=== PATIENT | female | born 2000 | race Caucasian/White ===

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

== ENCOUNTER 2020-12-19 07:53 | Emergency (ER) | payer OTHER, SELFPAY ==
[2020-12-19] VITALS (7 sets, daily range): BP systolic 112–138; BP diastolic 53–91; PULSE 78–105; RESP 14–18; TEMP 36.6; O2SAT 95–99
--- NOTE | 2020-12-19 07:55 | PC.NURSE ---
patient prsented per wc with sig other, states baby is comping, placed on cot and undressed and erp at the bedside
--- NOTE | 2020-12-19 08:01 | PC.NURSE ---
[facility] contacted no active blood noted, brown meconium stain noted during delivery
--- NOTE | 2020-12-19 08:10 | PC.NURSE ---
NS started at wide open rate started at this time
[2020-12-19] MEDS: SODIUM CHLORIDE 0.9% IV 1,000 ML 999 ML ×2 (08:15→09:16)
--- NOTE | 2020-12-19 08:19 | PC.NURSE ---
fluids infusing abominal massage to promote placental delivery,
--- NOTE | 2020-12-19 08:21 | PC.NURSE ---
placenta starting to deliver, continue to monitor at this time
--- NOTE | 2020-12-19 08:25 | PC.NURSE ---
Placenta delivered at this time
[2020-12-19] MEDS: OXYTOCIN 10 UNITS/ML VIAL 20 UNITS IV CONT (08:28)
--- NOTE | 2020-12-19 08:28 | PC.NURSE ---
Pitocin started at 200ml an hour
--- NOTE | 2020-12-19 08:30 | PC.NURSE ---
ERP on the phone with Dr SMITH
--- NOTE | 2020-12-19 08:30 | PC.NURSE ---
clean erlinda pad in place at this time, noted to have some bleeding, moderate amount, erlinda area cleaned
--- NOTE | 2020-12-19 08:33 | PC.NURSE ---
abdominal massage being performed fundus not quite firm at this time
--- NOTE | 2020-12-19 08:36 | PC.NURSE ---
Dr Garcia at the bedside for reassessment
--- NOTE | 2020-12-19 08:42 | PC.NURSE ---
doctor massaging fundus at this time, labs being drawn, second line to be started
--- NOTE | 2020-12-19 08:50 | PC.NURSE ---
infant skin to skin,with mom, dad at bedside, moderate vag bleding noted, erlinda pad applied, fundus firm at umbilicus
--- NOTE | 2020-12-19 08:51 | PC.NURSE ---
straight cath completed, approx 25ml obtained
--- NOTE | 2020-12-19 08:55 | PC.NURSE ---
pitocin increased to 300ml an hour
--- NOTE | 2020-12-19 08:57 | PC.NURSE ---
fundus more firm at this time, baby in room,
--- NOTE | 2020-12-19 09:00 | P.PCNOB_ITS ---
OB - Delivery Note Procedure Delivery date: 12/19/20 Procedure: This young woman came in stating she felt she was going to deliver. She started having contractions at about 2:30 am she says and felt she was going to deliver about 5:30 am. He water broke in the car on the way here. She was placed in room 6 as soon as she arrived, and the head was crowing when she was first observed. She reports no care, besides an initial appointment. It seems she did not care for her provider. She does not know when term delivery would be. She thinks her last menstrual cycle was in April. She presented here at 7:55 and was evaluated immediately. events: No Care Induction method: none Delivery monitor: external uterine Route of delivery: other (normal vaginal ) Episiotomy description: None Laceration Description: Perineal - 1st Degree Anesthesia type: None Complications: Transfer pending to [facility] Baby Date of : 12/19/20 Time of : 08:00 Weeks of gestation at delivery: 40 gender: Male (Weight 3.83 kilos) presentation: vertex position: Right Occiput Anterior Placenta delivery description: Spontaneous cord vessel description: 3 Vessels score one minute: 6 score five minutes: 8 score ten minutes: 9 Narrative: Delivery of placenta was at 8:25 am. Fundus was initially quite firm, but became baggy a few minutes later. Massage was done repeatedly and fundus has firmed up quickly. Discussed with Dr SMITH at [facility]. Plan transfe r as soon as possible.
[2020-12-19 09:10] LABS: Add Urine Microscopic? YES; Appearance Urine Clear (Clear); Bilirubin Urine Negative (Negative); Blood Urine 3+ (Negative); Color Urine Yellow (Yellow); Glucose Urine UA Negative (Negative); Ketones Urine Negative (Negative); Leukocyte Esterase Ur Negative (Negative); Nitrate Urine Negative (Negative); Protein Urine 1+ (Negative); Specific Grav Ur >= 1.030 (1.010-1.020); Urobilinogen Urine 0.2 mg/dL (0.2-1.0)
[2020-12-19 09:16] LABS: Amphetamine Screen Urine Positive (Negative); Barbiturate Screen Urine Negative (Negative); Benzodiazepines Screen Urine Negative (Negative); Cannabinoid Screen Urine Positive (Negative); Cocaine Screen Urine Negative (Negative); Methadone Screen Urine Negative (Negative); Opiate Screen Urine Negative (Negative); Phencyclidine Screen Urine Negative (Negative)
[2020-12-19 09:16] LABS: Bacteria Urine 2+ /hpf; RBC Urine 51-75 /hpf (0-2); Squamous Epithelial Cell Urine Moderate /hpf (Few)
[2020-12-19 09:17] LABS: Mucus Urine Heavy /lpf
--- NOTE | 2020-12-19 09:25 | PC.NURSE ---
pitocin decreased to 60ml an hour
--- NOTE | 2020-12-19 09:27 | PC.NURSE ---
erlinda pad changed, moderate amount of bleeding noted
[2020-12-19 09:43] LABS: HIV 1 P24 AG Negative (Negative); HIV 1/2 AB Negative (Negative)
--- NOTE | 2020-12-19 09:57 | ED.GENADULT ---
HPI - General Adult General Stated complaint: HAVING A BABY Time Seen by Provider: 12/19/20 07:55 Source: patient Mode of arrival: ambulatory Limitations: no limitations History of Present Illness HPI narrative: Patient states she had started having contractions this am at about 2:30 am. She knew she was in labor and was going to deliver at 5:30 am. Her water broke on the way here. She arrived and was put into room 6 for examination. She was and was delivered at 8:00am. See delivery note. Onset (ago): hour(s) Associated symptoms: denies other symptoms Related Data Home Medications Medication Instructions Recorded Confirmed No Home Medications 11/22/19 11/22/19 Allergies Allergy/AdvReac Type Severity Reaction Status Date / Time No Known Allergies Allergy Unverified 01/21/19 04:59 Review of Systems Review of Systems: All systems reviewed & are unremarkable except as noted in HPI and below Constitutional: Constitutional: Reports no additional constitutional complaints Eyes: Eyes: Reports no additional eye complaints ENT: Reports system reviewed and no additional complaints, except as documented Cardiovascular: Cardiovascular: Reports no additional cardiovascular complaints Respiratory: Respiratory: Reports no additional respiratory complaints Gastrointestinal: Gastrointestinal: Reports no additional gastrointestinal complaints Genitourinary: Genitourinary: Reports no additional female genitourinary complaints Musculoskeletal: Musculoskeletal: Reports no additional musculoskeletal complaints Integumentary/Breasts: Skin/Breast: Reports system reviewed and no additional complaints, except as docu Neurologic: Reports system reviewed and no additional complaints, except as documented Psychiatric: Psychiatric: Reports no additional psychiatric complaints Endocrine: Endocrine: Reports no additional endocrine complaints Hematologic/Lymphatic: Hematologic/Lymphatic: Reports no additional hematologic/lymphatic complaints [facility], [facility] Past Medical History Medical History Asthma exacerbation Nicotine dependence Surgical History Surgical History History of tonsillectomy Family History Family History (Updated 12/19/20 @ 10:02 by David Garcia MD) Other Family history non-contributory Social History Social History Years smoked: 5 Substance use: former Substance use type: methamphetamine Other substance usage details: off several weeks. Highly motivated, wants to be with her kids. Gender identity (if verbalized by the patient): Female Exam Narrative: Exam Narrative: She appears in moderate distress and it appears she will deliver momentarily. Const: General: alert Orientation/consciousness: patient oriented x3 HENMT: Head: normal to inspection Face and sinus: normal facial exam Eyes: Conjunctivae: conjunctivae normal EOM: EOMs intact bilaterally Neck: Neck: normal visual inspection Chest: Chest palpation & inspection: normal inspection of the chest Resp: Effort & Inspection: normal respiratory effort GI: GI Palp: Yes Soft to palpation (nontender) : Other: See delivery note. Her vaginal delivery was unremarkable at 8:00. She had a very small perineal tear, probably a stage 1 after delivery. Exterior genitals are unremarkable. She had minimal bleeding. Estimated blood loss was 500ml total. She initially had a firm fundus, but this became boggy pretty quickly. The fundus was massaged and it contracted well. Serial exams were performed and she was not felt to have significant bleeding. Back/Spine/Pelvis: Back: no CVA tenderness Skin: General skin exam: normal color Neuro: General: patient oriented x3 and moves all extremities Extrem: General: normal to inspection Psych: Appearance: grossly normal Mental S
--- NOTE | 2020-12-19 10:08 | PC.NURSE ---
fundus remain firm at the umbilicus. mod vaginal bleeding noted. depends applied. mother denies pain at this time. iv's infusing x2 well without signs of infiltration. transport team at the bedside.
== END 2020-12-19 10:50 | disposition short-term general hospital (02) ==
PROVIDERS: Emergency Provider Emergency Medicine
DX: O70.0 First degree perineal laceration during delivery (principal); Z3A.40 40 weeks gestation of pregnancy; Z37.0 Single live birth
CPT/HCPCS: 59409; 36415; 51701; 80307; 81001; 86703; 86850; 86900; 86901; 96374; 99285; 99291; J2590; J7030

== ENCOUNTER 2021-05-18 05:36 | Day surgery (SDC) | payer OTHER, SELFPAY ==
[2021-05-18] VITALS (24 sets, daily range): BP systolic 80–150; BP diastolic 44–70; PULSE 40–89; RESP 8–20; TEMP 35.9–36.7; O2SAT 98–100
[2021-05-18 06:16] LABS: Basophils Percent Auto 0.6 % (0.2-1.2); Eosinophils Absolute Auto 0.1 K/mm3 (0-0.3); Eosinophils Percent Auto 1.5 % (0-4.4); Hematocrit 29.3 % (37.0-47.0); Hemoglobin 9.5 g/dL (12.0-15.0); Immature Granulocyte Absolute 0.01 K/mm3 (0.00-0.031); Immature Granulocyte Percent A 0.2 % (0-0.5); Lymphocytes Absolute Auto 2.35 K/mm3 (0.9-3.2); Lymphocytes Percent Auto 35.7 % (18.3-44.2); Mean Corpuscular HGB Conc 32.4 g/dl (32-36); Mean Corpuscular Hemoglobin 25.5 pg (26-34); Mean Corpuscular Volume 78.6 fl (80-100); Mean Platelet Volume 10.7 fl (7.4-10.4); Monocytes Absolute Auto 0.5 K/mm3 (0.1-0.6); Monocytes Percent Auto 7.6 % (2.6-8.5); Neutrophils Absolute Auto 3.6 K/mm3 (1.3-6.7); Neutrophils Percent Auto 54.4 % (45.5-73.1); Platelet Count Result 295 k/mm3 (150-375); Red Blood Count 3.73 M/mm3 (4.2-5.4); Red Cell Distribution Width 20.4 % (11.5-14.5); White Blood Count 6.6 K/mm3 (4.5-10.0)
[2021-05-18] MEDS: SODIUM CHLORIDE 0.9% IV 1,000 ML 999 ML IV CONT ×2 (07:03→07:37)
--- NOTE | 2021-05-18 07:03 | PC.NURSE ---
ED MD did speculum exam with this RN as etcher aircraft. removed large amount of clots approx. size of golf ball.
[2021-05-18 07:07] LABS: Anion Gap 5 mmol/L (8-16); Blood Urea Nitrogen 15 mg/dL (7-17); Calcium 8.5 mg/dL (8.4-10.2); Carbon Dioxide 22 mmol/L (22-30); Chloride 110 mmol/L (98-107); Estimated CRCL calculation 128 ml/min; Estimated Glomerular Filt Rate > 60; Glucose 90 mg/dL (65-110); Potassium 4.5 mmol/L (3.4-5.0); Sodium 137 mmol/L (137-145)
[2021-05-18 07:42] LABS: Partial Thromboplastin Time 30.4 SECONDS (22.3-36.8); Prothrombin Time 13.2 Seconds (11.1-14.7); SPREG INTERNAL CONTROL Positive; Serum Qual hCG Positive
--- NOTE | 2021-05-18 07:48 | ED.GENADULT ---
HPI - General Adult General Source: RN notes reviewed History of Present Illness HPI narrative: Patient presents emergency department from home for vaginal bleeding. Patient states that she awoke and blood this morning she states that since that time she is been passing large amounts of bright red blood patient states that she has been having brown vaginal bleeding for the past 1 week patient states she does not know she is possibly she states that she did have a in December that required her to be transferred to [facility] from [facility] secondary to a retained placenta patient does note mild lower abdominal cramping denies any fevers or chills chest pain shortness of breath Related Data Allergies Allergy/AdvReac Type Severity Reaction Status Date / Time No Known Allergies Allergy Unverified 05/18/21 08:53 Review of Systems Review of Systems: Gen.: Denies fevers or chills ENT: Denies congestion Respiratory: Denies shortness of breath or cough CV: Denies chest pain or palpitations GI: Reports lower abdominal cramping. Denies nausea, emesis or diarrhea see HPI Musculoskeletal: Denies back pain or muscle pain Neuro: Denies numbness, tingling, weakness or focal weakness Skin: Denies rash Except as documented, all other systems reviewed and negative [facility] Past Medical History Medical History Asthma exacerbation Nicotine dependence Surgical History Surgical History History of tonsillectomy Family History Family History Other Family history non-contributory Social History Social History Years smoked: 5 Substance use: former Substance use type: methamphetamine Other substance usage details: off several weeks. Highly motivated, wants to be with her kids. Gender identity (if verbalized by the patient): Female Exam Narrative: APPEARANCE: No acute distress, nontoxic, resting in bed EYES: EOMI HEENT: Normocephalic, atraumatic, OMM RESPIRATORY: No respiratory distress Clear to auscultation bilaterally with no rhonchi wheezing or rales. CARDIOVASCULAR: Regular rate and rhythm without murmurs rubs or gallops. ABDOMINAL: Soft, nontender, nondistended, no rebound or guarding : Blood clots over external vagina, right red blood with clots in vaginal canal were all removed MUSCULOSKELETAl: Moves all extremities. No clubbing, cyanosis or edema. NEURO: Awake and alert. Following commands, speech normal, no focal deficits SKIN:: Warm, dry. No rashes lesions or abrasions PSYCHIATRIC: Normal affect/mood, Course Course Emergency Course: Discussed with Dr. Walker in the emergency department see the patient Dr. Walker evaluated the patient at this time will take the patient to the OR for D&C Discussed with patient plan for OR agreement at this time Vital Signs Vital signs: Vital Signs Temperature 98.0 F 05/18/21 05:42 Pulse Rate 69 05/18/21 05:42 Respiratory Rate 16 05/18/21 05:42 Blood Pressure 102/59 L 05/18/21 05:42 Pulse Oximetry 100 05/18/21 05:42 Temperature 98.1 F 05/18/21 12:25 Pulse Rate 52 L 05/18/21 14:15 Respiratory Rate 14 05/18/21 14:15 Blood Pressure 105/70 05/18/21 14:15 Pulse Oximetry 100 05/18/21 13:45 Medical Decision Making Vital Signs Vital Signs: Vital Signs Temperature 98.0 F 05/18/21 05:42 Pulse Rate 69 05/18/21 05:42 Respiratory Rate 16 05/18/21 05:42 Blood Pressure 102/59 L 05/18/21 05:42 Pulse Oximetry 100 05/18/21 05:42 Temperature 98.1 F 05/18/21 12:25 Pulse Rate 52 L 05/18/21 14:15 Respiratory Rate 14 05/18/21 14:15 Blood Pressure 105/70 05/18/21 14:15 Pulse Oximetry 100 05/18/21 13:45 Lab Data Result diagrams: 05/18/21 10:37 05/18
--- NOTE | 2021-05-18 07:52 | P.HP_ITS ---
H&P: HPI History of Present Illness Date/Time: 05/18/21 07:47 Lavern is a 21yo s/p in January 2021. She reports the delivery was complicated by retained placenta. She was given medications and they thought that she passed everything. She presents with heavy vaginal bleeding; found to be anemic, hypotensive, and bleeding. She had a positive beta HCG; unsure of LMP. Reports cramping Chief Complaint: vaginal bleeding Review of Systems Review of Systems: All systems reviewed & are unremarkable except as noted in HPI and below (HPI) [facility] Past Medical History Medical History Asthma exacerbation Nicotine dependence Surgical History Surgical History History of tonsillectomy Family History Family History Other Family history non-contributory Social History Social History Years smoked: 5 Substance use: former Substance use type: methamphetamine Other substance usage details: off several weeks. Highly motivated, wants to be with her kids. Gender identity (if verbalized by the patient): Female Meds Home Medications and Allergies Home Medications Medication Instructions Recorded Confirmed Type No Home Medications 11/22/19 11/22/19 History Allergies Allergy/AdvReac Type Severity Reaction Status Date / Time No Known Allergies Allergy Unverified 01/21/19 04:59 Vital Signs Vital Signs - 24 hr 05/18/21 05:42 05/18/21 07:02 05/18/21 07:03 Temperature 36.7 C Pulse Rate 69 63 71 Respiratory Rate 16 20 17 Blood Pressure 102/59 L 90/65 L Pulse Oximetry 100 100 100 05/18/21 07:04 05/18/21 07:15 05/18/21 07:16 Temperature Pulse Rate 63 53 L 60 Respiratory Rate 15 13 8 L Blood Pressure 90/65 L 85/59 L Pulse Oximetry 99 100 100 Exam Const: General: anxious Resp: Effort & Inspection: normal respiratory effort and able to speak in complete sentences Cardio: Rate: tachycardic : Other: cervix 2cm dilated w/ bleeding; large clot removed Neuro: General: patient oriented x3 Psych: Affect: Anxious affect present H&P: Results Labs Labs: Short CBC 05/18/21 Range/Units 06:06 WBC 6.6 (4.5-10.0) K/mm3 Hgb 9.5 L (12.0-15.0) g/dL Hct 29.3 L (37.0-47.0) % Plt Count 295 (150-375) k/mm3 BMP 05/18/21 06:06 Sodium 137 Potassium 4.5 Chloride 110 H Carbon Dioxide 22 BUN 15 Creatinine 0.50 L Glucose 90 Calcium 8.5 Assessment and Plan Assessment and plan (1) Incomplete miscarriage: Code(s): O03.4 - Incomplete spontaneous without complication Status: Acute Additional Plan - Proceed with suction D&C - Risks and benefits explained - T&S
--- NOTE | 2021-05-18 08:31 | PC.NURSE ---
Cursing at nurse. Refuses to remove her socks and bra. Refuses to let this nurse take her to the OR.
--- NOTE | 2021-05-18 08:57 | WPDANESEPPF ---
Anes - Initial Pre Proc Eval Procedure: Operation Date: 05/18/21 09:00 Proposed Procedures p Suction Dilatation And Curettage - Melvina Walker MD Date/Time: 05/18/21 08:57 Surgeon: Melvina Walker MD Pre Op Diagnosis: Vaginal bleeding Patient Data Age: 21 Gender: F Height: 1.63 m Weight: 69.54 kg Last Vital Signs Temp 36.7 C 05/18/21 05:42 Pulse 70 05/18/21 08:26 Resp 18 05/18/21 08:26 BP 100/62 05/18/21 08:26 Pulse Ox 98 05/18/21 08:26 Allergies Allergy/AdvReac Type Severity Reaction Status Date / Time No Known Allergies Allergy Unverified 05/18/21 08:53 Home Medications Medication Instructions Recorded Confirmed Type No Home Medications 11/22/19 11/22/19 History Laboratory Tests 05/18/21 05/18/21 05/18/21 06:06 06:06 06:54 WBC 6.6 K/mm3 K/mm3 (4.5-10.0) RBC 3.73 M/mm3 L M/mm3 (4.2-5.4) Hgb 9.5 g/dL L g/dL (12.0-15.0) Hct 29.3 % L % (37.0-47.0) MCV 78.6 fl L fl (80-100) MCH 25.5 pg L pg (26-34) MCHC 32.4 g/dl g/dl (32-36) RDW 20.4 % H % (11.5-14.5) Plt Count 295 k/mm3 k/mm3 (150-375) MPV 10.7 fl H fl (7.4-10.4) Immature Gran % (Auto) 0.2 % % (0-0.5) Neut % (Auto) 54.4 % % (45.5-73.1) Lymph % (Auto) 35.7 % % (18.3-44.2) [place] % (Auto) 7.6 % % (2.6-8.5) Eos % (Auto) 1.5 % % (0-4.4) Baso % (Auto) 0.6 % % (0.2-1.2) Lymph # (Auto) 2.35 K/mm3 K/mm3 (0.9-3.2) [place] # (Auto) 0.5 K/mm3 K/mm3 (0.1-0.6) Eos # (Auto) 0.1 K/mm3 K/mm3 (0-0.3) Baso # (Auto) 0.0 K/mm3 K/mm3 (0.0-0.1) Abs Immat Gran (auto) 0.01 K/mm3 K/mm3 (0.00-0.031) Absolute Neuts (auto) 3.6 K/mm3 K/mm3 (1.3-6.7) Absolute Nucleated RBC 0.0 K/mm3 K/mm3 (0.0-0.012) Nucleated RBC % 0.0 % % (0.0-0.2) PT 13.2 Seconds Seconds (11.1-14.7) INR 1.0 APTT 30.4 SECONDS SECONDS (22.3-36.8) Sodium 137 mmol/L mmol/L (137-145) Potassium 4.5 mmol/L mmol/L (3.4-5.0) Chloride 110 mmol/L H mmol/L (98-107) Carbon Dioxide 22 mmol/L mmol/L (22-30) Anion Gap 5 mmol/L L mmol/L (8-16) BUN 15 mg/dL mg/dL (7-17) Creatinine 0.50 mg/dL L mg/dL (0.7-1.0) Estim Creat Clear Calc 128 ml/min ml/min Estimated GFR > 60 (59 - ) Glucose 90 mg/dL mg/dL (65-110) Calcium 8.5 mg/dL mg/dL (8.4-10.2) Serum HCG, Qual 05/18/21 06:54 WBC RBC Hgb Hct MCV MCH MCHC RDW Plt Count MPV Immature Gran % (Auto) Neut % (Auto) Lymph % (Auto) [place] % (Auto) Eos % (Auto) Baso % (Auto) Lymph # (Auto) [place] # (Auto) Eos # (Auto) Baso # (Auto) Abs Immat Gran (auto) Absolute Neuts (auto) Absolute Nucleated RBC Nucleated RBC % PT INR APTT Sodium Potassium Chloride Carbon Dioxide Anion Gap BUN Creatinine Estim Creat Clear Calc Estimated GFR Glucose Calcium Serum HCG, Qual Positive A Patient hx anesthesia problems: none Family hx anesthesia problems: none PENDING SALE TO [facility] Past Medical History Medical History Asthma exacerbation Nicotine dependence Surgical History Surgical History History of tonsillectomy Family History Family History Other Family history non-contributory Social History Social History Years smoked: 5 Substance use:
[2021-05-18] MEDS: hetaSTARCH 6%/NACL 500 ML IV CONT (09:01)
--- NOTE | 2021-05-18 09:26 | WPDHPUPDATE1 ---
History and Physical Update Update Date/Time: 05/18/21 09:26 History and Physical has been reviewed, including an updated exam of the patient. There are NO changes in the patient's condition. Risks, benefits, and alternatives have been discussed and questions answered. Patient agrees to proceed with procedure.
[2021-05-18] MEDS: LACTATED RINGERS 1,000 ML 30 ML IV CONT ×2 (10:11→11:06)
--- NOTE | 2021-05-18 10:41 | P.OP_ITS ---
Procedure Note - Detailed Date of Procedure 05/18/21 Pre-op Diagnosis - Vaginal bleeding - Incomplete AB Post-op Diagnosis same Procedure Performed Suction dilation and curettage Surgeon Melvina Walker MD Anesthesia MAC Indications 21yo , unknown LMP w/ active vaginal bleeding, dilated cervix. +pregnan cy test today, hypotensive and tachycardic; H/H down 2 points from January 2021 Findings Uterus normal size; cervix 2cm dilated w/ POC protruding through external os; large clots removed ~50cc in total Description of Procedure Lavern was taken operating room where she was placed under mac sedation. She was then prepped and draped in the normal sterile fashion in the dorsal lithotomy position. A time-out was performed. A bivalve speculum was then placed within the vagina where a significant amount of large clots were removed. On removal of the clots the cervix was found to be dilated with products of conception at the external os. Using ring forceps the products of conception were removed and sent to pathology. A tenaculum was then placed on the anterior lip of the cervix. Using a curved 8 Lao suction cannula, the uterus was evacuated and minimal bleeding was noted. Approximately 3 passes were made. Using a sharp curettage gently, good uterine cry was noted. Using a bedside ultrasound the lining was verified thin. Good hemostasis was noted. CBC and coags were collected while patient was still asleep. Sponge, lap, instrument counts were correct at the end the procedure. Patient was awoken without issues and taken to recovery with plans of same day discharge home if labs are stable. Estimated Blood Loss 150 Drains No Packing No Pathology yes Complications No immediate complications Condition stable Disposition same day
[2021-05-18 10:49] LABS: Hematocrit 21.2 % (37.0-47.0); Mean Corpuscular HGB Conc 31.1 g/dl (32-36); Mean Corpuscular Hemoglobin 25.2 pg (26-34); Mean Corpuscular Volume 80.9 fl (80-100); Mean Platelet Volume 10.3 fl (7.4-10.4); Platelet Count Result 197 k/mm3 (150-375); Red Blood Count 2.62 M/mm3 (4.2-5.4); Red Cell Distribution Width 20.5 % (11.5-14.5); White Blood Count 4.7 K/mm3 (4.5-10.0)
[2021-05-18 10:53] LABS: Hemoglobin 6.6 g/dL (12.0-15.0)
[2021-05-18 11:31] LABS: INR 1.3; Prothrombin Time 15.6 Seconds (11.1-14.7)
[2021-05-18] MEDS: SODIUM CHLORIDE 0.9% IV 250 ML 30 ML IV CONT (11:35)
--- NOTE | 2021-05-18 14:19 | SUR.PHASEII ---
[address] HDZ PER PHONE- UPDATED ON PTS STATUS. DR HDZ AWARE PT REFUSING LAB DRAW FOR A REPEAT H&H AFTER 1 UNIT PRBC. STATES IF PT CAN WALK TO THE RESTROOM AND URINATE AND NOT FEEL LIGHT-HEADED SHE CAN BE DISCHARGED HOME.
--- NOTE | 2021-05-18 15:27 | SUR.PHASEII ---
1520 THEODORE CASTELLANOS RN SPOKE WITH DR HDZ IN REGARDS TO PT NOT HAVING A RIDE HOME- DR ANDREINA PUENTES WITH PT BEING DISCHARGED PER [facility] WITHOUT A RESPONSIBLE ADULT PRESENT.
--- NOTE | 2021-05-18 15:34 | PCCCNOTE ---
Received call from PACU requesting cab voucher for Lavern to go home. She reports she has no ride home and will walk. Gloria spoke with who states pt can go home by cab. One way, no stop cab voucher given to DIRECTOR CARDIOLOGY.
== END 2021-05-18 15:55 | disposition home or self-care (01) ==
LOC: ANHED 07:53 → ANHSURGERY 08:07
PROVIDERS: Emergency Medicine; Emergency Provider Emergency Medicine; Visit Provider Obstetrics & Gynecology
DX: O03.4 Incomplete spontaneous abortion without complication (principal); J45.901 Unspecified asthma with (acute) exacerbation
CPT/HCPCS: 59812; 36415; 36430; 80048; 84703; 85025; 85027; 85610; 85730; 86850; 86900; 86901; 86920; 88305; A9270; J2250; J2704; J3010; J7030; J7050; J7060; J7120; P9016

== ENCOUNTER 2022-03-16 14:41 | Outpatient (CLI) | payer OTHER, SELFPAY ==
--- NOTE | ~2022-03-16 | US_ITS ---
US OB <=14 wk fetus w TV DATE: 03/16/2022 15:55 INDICATION: Abdominal pain, amenorrhea. Positive test. TECHNIQUE: Real-time imaging via transabdominal and transvaginal approaches, color flow imaging COMPARISON: None FINDINGS: The uterus measures approximately 9.7 cm height, 6.1 cm anteroposterior dimension. An intra uterine gestational sac is identified. pole and yolk sac are detected. The gestational sac is n ormally shaped with normal surrounding hyperechogenicity consistent with normal decidual reaction. Fe steven heart rate of 139 bpm. Gestational sac size is consistent with 6 weeks estimated gestational age. Ridgeway-rump length averaging 0.78 cm is consistent with 6 weeks 5 days estimated gestational age +/- 4 days, with ANGI of November 04, 2022. The ovaries appear normal, with vascular flow. No pelvic mass lesion is noted. Probable physiologic small amount of free fluid in the posterior cul- de-sac. IMPRESSION: Early intrauterine gestation, estimated gestational age of 6 weeks 5 days +/- 4 days, wit h ANGI of November 04, 2022 Reviewed, dictated and finalized at [facility]. Reviewed, dictated and finalized at location [facility]. IMPRESSION: Early intrauterine gestation, estimated gestational age of 6 weeks 5 days +/- 4 days, with ANGI of November 04, 2022
[2022-03-16 14:56] LABS: Basophils Absolute Auto 0.04 K/mm3 (0.00-0.10); Basophils Percent Auto 0.6 % (0.0-1.0); Eosinophils Absolute Auto 0.13 K/mm3 (0.02-0.50); Eosinophils Percent Auto 1.8 % (1.0-6.0); Hematocrit 38.8 % (35.0-49.0); Hemoglobin 12.7 g/dL (12.0-15.0); Immature Granulocyte Absolute 0.01 K/mm3 (0.00-0.00); Immature Granulocyte Percent A 0.1 % (0.0-0.0); Lymphocytes Absolute Auto 2.66 K/mm3 (1.10-4.50); Lymphocytes Percent Auto 37.6 % (18.0-42.0); Mean Corpuscular HGB Conc 32.7 g/dL (32.0-36.0); Mean Corpuscular Hemoglobin 29.6 pg (27.0-31.0); Mean Corpuscular Volume 90.4 fL (78.0-102.0); Mean Platelet Volume 10.1 fl (9.2-11.8); Monocytes Absolute Auto 0.53 K/mm3 (0.10-0.90); Monocytes Percent Auto 7.5 % (2.0-11.0); Neutrophils Absolute Auto 3.7 K/mm3 (1.7-7.2); Neutrophils Percent Auto 52.4 % (50.0-70.0); Platelet Count Result 311 K/mm3 (150-420); Red Blood Count 4.29 M/mm3 (4.20-5.40); Red Cell Distribution Width 13.7 % (11.6-14.4); White Blood Count 7.1 K/mm3 (4.8-10.8)
[2022-03-16 15:03] LABS: SPREG INTERNAL CONTROL Positive; Serum Qual hCG Positive
[2022-03-16 15:25] LABS: Alanine Aminotransferase 16 U/L (14-59); Albumin Level 3.8 g/dL (3.4-5.0); Alkaline Phosphatase 66 U/L (46-116); Anion Gap 6 mmol/L (8-16); Aspartate Amino Transferase < 10 U/L (15-37); Bilirubin,Total 0.3 mg/dL (0.00-1.00); Blood Urea Nitrogen 13 mg/dL (7-18); Carbon Dioxide 29 mmol/L (21-32); Chloride 103 mmol/L (98-108); Estimated Glomerular Filt Rate > 60; Free T4 Free Thyroxine 0.93 ng/dL (0.76-1.46); Glucose 92 mg/dL (70-99); Osmolality Calculated 286 mOsm/kg (285-295); Sodium 138 mmol/L (136-145); Thyroid Stimulating Hormone 0.55 uIU/mL (0.36-3.74); Total Protein 7.1 g/dL (6.4-8.2)
== END 2022-03-16 14:42 | disposition home or self-care (01) ==
LOC: CHSLAB 14:43
PROVIDERS: PCP Family Medicine; Visit Provider Nurse Practitioner Family
DX: N91.2 Amenorrhea, unspecified (principal); Z32.01 Encounter for pregnancy test, result positive; R10.9 Unspecified abdominal pain
CPT/HCPCS: 36415; 76801; 76817; 80053; 84439; 84443; 84703; 85025

== ENCOUNTER 2023-04-22 21:59 | Emergency (ER) | payer OTHER, SELFPAY ==
[2023-04-22 21:59] VITALS: BP 117/72; PULSE 98; RESP 16; TEMP 36.8; O2SAT 97
[2023-04-22 22:01] VITALS: BP 117/72; PULSE 97; RESP 20; TEMP 37; O2SAT 98
--- NOTE | 2023-04-22 22:05 | ED.SKABFB ---
HPI - Skin/Abscess/Foreign Bdy General Chief complaint: Skin/Abscess/Foreign Body Stated complaint: R arm boil Time Seen by Provider: 04/22/23 22:05 Source: patient Mode of arrival: ambulatory Limitations: no limitations History of Present Illness HPI narrative: patient is a 23-year-old female with right armpit pain and swelling. She is developed a right armpit boil at this time. Patient has tried multiple outpatient home remedies without success. Patient declines to allow any surgical procedure to this area tonight but may allow in the near future. complaint: abscess/boil Onset (ago): week(s) (1) Tetanus up to date: yes Location: RUE Severity: moderate Severity scale (1-10): 5 Quality: sharp and constant Pain Consistency: constant Relieving factors: none Exacerbating factors: none Context: none Associated symptoms: denies other symptoms Treatments prior to arrival: OTC topical medication Related Data Allergies Allergy/AdvReac Type Severity Reaction Status Date / Time No Known Allergies Allergy Unverified 05/18/21 08:53 Review of Systems Review of Systems: All systems reviewed & are unremarkable except as noted in HPI and below Constitutional: Constitutional: Reports no additional constitutional complaints Eyes: Eyes: Reports no additional eye complaints ENT: Reports system reviewed and no additional complaints, except as documented Cardiovascular: Cardiovascular: Reports no additional cardiovascular complaints Respiratory: Respiratory: Reports no additional respiratory complaints Gastrointestinal: Gastrointestinal: Reports no additional gastrointestinal complaints Genitourinary: Genitourinary: Reports no additional female genitourinary complaints Musculoskeletal: Musculoskeletal: Reports no additional musculoskeletal complaints Integumentary/Breasts: Skin/Breast: Reports system reviewed and no additional complaints, except as docu Neurologic: Reports system reviewed and no additional complaints, except as documented Psychiatric: Psychiatric: Reports no additional psychiatric complaints Endocrine: Endocrine: Reports no additional endocrine complaints Hematologic/Lymphatic: Hematologic/Lymphatic: Reports no additional hematologic/lymphatic complaints Allergic/Immunologic: Allergic/Immunologic: Reports no additional allergic/immunologic complaints [facility] Past Medical History Medical History Asthma exacerbation Nicotine dependence Surgical History Surgical History History of tonsillectomy Family History Family History Other Family history non-contributory Social History Social History Years smoked: 5 Substance use: former Substance use type: methamphetamine Other substance usage details: off several weeks. Highly motivated, wants to be with her kids. Gender identity (if verbalized by the patient): Female Exam Const: General: healthy appearing Nutritional Appearance: well nourished Orientation/consciousness: patient oriented x3 HENMT: Head: normal to inspection Ears: external ears normal Eyes: Conjunctivae: conjunctivae normal Pupils: Equal, round and reactive pupils present Neck: Neck: normal visual inspection Chest: Chest palpation & inspection: normal inspection of the chest Resp: Effort & Inspection: normal respiratory effort Auscultation: clear to auscultation bilaterally Cardio: Rate: regular rate Rhythm: regular rhythm Heart sounds: no murmurs GI: Inspection: non-distended GI Palp: Yes Soft to palpation and No Tenderness to palpation present (GI) Auscultation: normal bowel sounds : General: Yes bladder normal to palpation Back/Spine/Pelvis: Back: no CVA tenderness Skin: General skin exam: normal color Rashes: no rashes Wounds: no
[2023-04-22] MEDS: HYDROcodone/acetaminophen (*CRX) 5-325 MG TABLET 1 TAB PO (22:27)
[2023-04-22] MEDS: CLINDAMYCIN HCL 150 MG CAP 300 MG PO (22:27)
== END 2023-04-22 22:35 | disposition home or self-care (01) ==
PROVIDERS: Emergency Provider Emergency Medicine; PCP Family Medicine
DX: L02.423 Furuncle of right upper limb (principal); Z87.891 Personal history of nicotine dependence
CPT/HCPCS: 99283; A9270

== ENCOUNTER 2023-09-29 11:35 | Emergency (ER) | payer OTHER, SELFPAY ==
[2023-09-29 11:35] VITALS: BP 127/85; PULSE 106; RESP 12; TEMP 36.8; O2SAT 99
--- NOTE | 2023-09-29 11:44 | ED.DENTAL ---
HPI - Dental/Oral General Chief complaint: Dental/Oral Stated complaint: left lower molar tooth ache Time Seen by Provider: 09/29/23 11:41 Source: patient Mode of arrival: ambulatory Limitations: no limitations History of Present Illness HPI Narrative: this is a 23-year-old female with a history of dental problems including tooth decay and has an area the left lower molar cracked tooth or surrounding gum inflammation with no fever chills no shortness of breath. The patient is establishing with a dentist. Complaint: tooth pain Onset (ago): week(s) Duration: constant Severity: moderate Severity scale (1-10): 6 Related Data Allergies Allergy/AdvReac Type Severity Reaction Status Date / Time No Known Allergies Allergy Unverified 05/18/21 08:53 Review of Systems Review of Systems: All systems reviewed & are unremarkable except as noted in HPI and below PMFSH Past Medical History Medical History Asthma exacerbation Nicotine dependence Surgical History Surgical History History of tonsillectomy Family History Family History Other Family history non-contributory Social History Social History Years smoked: 5 Substance use: former Substance use type: methamphetamine Other substance usage details: off several weeks. Highly motivated, wants to be with her kids. Gender identity (if verbalized by the patient): Female Exam Const: General: healthy appearing Nutritional Appearance: well nourished Orientation/consciousness: patient oriented x3 Neck: Neck: normal visual inspection and no lymphadenopathy Chest: Chest palpation & inspection: normal inspection of the chest Resp: Effort & Inspection: normal respiratory effort Auscultation: clear to auscultation bilaterally Cardio: Rate: regular rate Rhythm: regular rhythm Skin: Rashes: no rashes Course Course Emergency Course: Will be sending antibiotics and naproxen to her local pharmacy and advised patient follow-up with dentist. Vital Signs Vital signs: Vital Signs Temperature 36.8 C 09/29/23 11:35 Pulse Rate 106 H 09/29/23 11:35 Respiratory Rate 12 09/29/23 11:35 Blood Pressure 127/85 09/29/23 11:35 Pulse Oximetry 99 09/29/23 11:35 Oxygen Delivery Room Air 09/29/23 11:35 Temperature 36.8 C 09/29/23 11:35 Pulse Rate 106 H 09/29/23 11:35 Respiratory Rate 12 09/29/23 11:35 Blood Pressure 127/85 09/29/23 11:35 Pulse Oximetry 99 09/29/23 11:35 Oxygen Delivery Room Air 09/29/23 11:35 Critical Care Time Critical Care Time Critical Care Time: No Discharge Plan Discharge Clinical Impression: Dental abscess, Broken or cracked tooth, nontraumatic Patient Disposition: Home, Self-Care Condition: Stable Instructions: Antibiotic Form, Dental Abscess (ED) Additional Instructions: take medicine as prescribed and follow-up with dentist as soon as possible for further evaluation and treatment. Prescriptions: New amoxicillin 500 mg capsule 500 mg PO TID Qty: 30 0RF naproxen 500 mg tablet 500 mg PO BID PRN (Reason: pain) Qty: 20 0RF No Action clindamycin HCl 300 mg capsule 300 mg PO Q8H 7 Days Qty: 21 0RF Follow-up/Referrals: Robert Muller MD [Primary Care Provider] - Stand Alone Forms: Work/School Release IP Time of Disposition: 11:48
== END 2023-09-29 11:59 | disposition home or self-care (01) ==
LOC: CHSED 11:54
PROVIDERS: Emergency Provider Emergency Medicine; PCP Family Medicine
DX: K04.7 Periapical abscess without sinus (principal); K03.81 Cracked tooth
CPT/HCPCS: 99283

== ENCOUNTER 2024-01-01 07:07 | Emergency (ER) | payer OTHER, SELFPAY ==
--- NOTE | ~2024-01-01 | XR_ITS ---
EXAMINATION: XR chest 2V DATE: 01/01/2024 07:42 INDICATION: 5 days of chest pain and cough TECHNIQUE: Frontal and lateral views of the chest were obtained. COMPARISON: None FINDINGS: The lungs are clear with no focal airspace opacities, pulmonary edema, pleural effusion or pneumothor ax. The cardiomediastinal silhouette is normal. Mild thoracic spondylosis with chronic appearing mild anterior wedging of a midthoracic vertebral body, likely T6. IMPRESSION: 1. No acute cardiopulmonary disease. Reviewed, dictated and finalized at location [facility].
[2024-01-01 07:13] VITALS: BP 107/90; PULSE 110; RESP 18; TEMP 37.1; O2SAT 99
[2024-01-01 07:16] VITALS: O2SAT 100
--- NOTE | 2024-01-01 07:39 | ED.URI ---
HPI - URI/Sore Throat General Chief Complaint: Upper Respiratory Infection Stated Complaint: Congestion Time Seen by Provider: 01/01/24 07:19 Source: patient Mode of arrival: ambulatory Limitations: no limitations History of Present Illness HPI Narrative: 23 years old white female came to the emergency room with productive cough, nasal congestion, body aches, chills started high days. Patient denies sick contact. Related Data Home Medications Medication Instructions Recorded Confirmed buspirone 7.5 mg tablet 7.5 mg PO BID 01/01/24 01/01/24 prazosin 2 mg capsule 2 mg PO QID 01/01/24 01/01/24 Allergies Allergy/AdvReac Type Severity Reaction Status Date / Time No Known Allergies Allergy Unverified 01/01/24 07:11 Review of Systems Review of Systems: All systems reviewed & are unremarkable except as noted in HPI and below PMFSH Past Medical History Medical History Asthma exacerbation Incomplete miscarriage Nicotine dependence Surgical History Surgical History History of dilation and curettage 04/2021 History of tonsillectomy Family History Family History Other Family history non-contributory Social History Social History Years smoked: 5 Substance use: former Substance use type: methamphetamine Other substance usage details: off several weeks. Highly motivated, wants to be with her kids. Gender identity (if verbalized by the patient): Female Exam Narrative: General appearance: Well-developed, well-nourished Skin: Normal color Head: Normocephalic, nontraumatic Eyes: Clear conjunctiva ENT: Oropharynx normal, ears normal, nose normal Neck: Supple, nontender Chest and respiratory: Airway patent, no respiratory distress, no accessory muscle use Heart: Regular rate/rhythm Abdomen: Soft, nontender, no organomegaly, quiet bowel sounds Vascular: Normal peripheral pulses, normal capillary refill. Musculoskeletal: Normal range of motion, nontender back Neurologic: Alert and oriented ?3, [employer] is normal as tested, no gross motor deficit Course Vital Signs Vital signs: Vital Signs Temperature 37.1 C 01/01/24 07:13 Pulse Rate 110 H 01/01/24 07:13 Respiratory Rate 18 01/01/24 07:13 Blood Pressure 107/90 01/01/24 07:13 Pulse Oximetry 99 01/01/24 07:13 Oxygen Delivery Room Air 01/01/24 07:13 Temperature 37.1 C 01/01/24 07:13 Pulse Rate 110 H 01/01/24 07:13 Respiratory Rate 18 01/01/24 07:13 Blood Pressure 107/90 01/01/24 07:13 Pulse Oximetry 100 01/01/24 07:16 Oxygen Delivery Room Air 01/01/24 07:16 MDM - URI/Sore Throat MDM Narrative Medical decision making narrative: upper respiratory viral infection, bronchitis, strep throat, pneumonia are my concern Patient tested positive for strep, negative for RSV, COVID and flu, patient could have other upper respiratory viral infection. Diagnosis upper respiratory viral infection and strep throat. Discharged on amoxicillin and Tessalon Differential Diagnosis Differential diagnosis: Likely upper respiratory infection, viral infection, bronchitis, influenza and pharyngitis Lab Data Labs: Lab Results 01/01/24 Range/Units 07:12 Influenza A (RT-PCR) Negative (Negative) Influenza B (RT-PCR) Negative (Negative) RSV (RT-PCR) Negative (Negative) SARS-CoV-2 RNA (RT-PCR) Negative (Negative) Group A Strep (PCR) Detected A (Negative) Imaging Data Radiologist's impression: Impressions
[2024-01-01 07:52] LABS: Strep Group A RT-PCR DETECTED (Negative)
[2024-01-01 07:59] LABS: SARS-CoV-2 RNA PCR Negative (Negative)
[2024-01-01 08:00] LABS: Influenza A QL RT-PCR Negative (Negative); Influenza B QL RT-PCR Negative (Negative); RSV RNA, RT-PCR Negative (Negative)
[2024-01-01 08:31] VITALS: BP 101/65; PULSE 82; RESP 17; TEMP 36.9; O2SAT 99
== END 2024-01-01 08:31 | disposition home or self-care (01) ==
PROVIDERS: Emergency Provider Emergency Medicine; PCP Family Medicine
DX: J02.0 Streptococcal pharyngitis (principal); J45.909 Unspecified asthma, uncomplicated; Z20.822 Contact with and (suspected) exposure to COVID-19
CPT/HCPCS: 71046; 87637; 87651; 99283

== ENCOUNTER 2024-05-05 11:48 | Emergency (ER) | payer OTHER, SELFPAY ==
[2024-05-05 11:50] VITALS: BP 110/76; PULSE 88; RESP 18; TEMP 36.3; O2SAT 100
--- NOTE | 2024-05-05 12:22 | ED.DENTAL ---
HPI - Dental/Oral General Chief complaint: Dental/Oral Stated complaint: tooth pain Time Seen by Provider: 05/05/24 11:56 History of Present Illness HPI Narrative: patient presents with acute on chronic dental pain. She reports that she has had a broken tooth that is been intermittently infected in the upper right quadrant of her mouth. She is also reporting ear drainage on that same side. She has been taking 800 mg of ibuprofen every 4 hours for pain with some minimal relief. Patient reports that she is waking up at night screaming in pain. She is trying to get established with a local dental clinic or dental school so that she can have the tooth pulled. Remainder of ROS was negative for fever, chills, nausea, vomiting, headache, vision changes, chest pain, sob, abdominal pain, or changes in diet, bladder, or bowel habits. Related Data Home Medications Medication Instructions Recorded Confirmed No Home Medications 05/05/24 05/05/24 Allergies Allergy/AdvReac Type Severity Reaction Status Date / Time No Known Allergies Allergy Unverified 01/01/24 07:11 [facility] Past Medical History Medical History Asthma exacerbation Incomplete miscarriage Nicotine dependence Surgical History Surgical History History of dilation and curettage 04/2021 History of tonsillectomy Family History Family History Other Family history non-contributory Social History Social History Years smoked: 5 Substance use: former Substance use type: methamphetamine Other substance usage details: off several weeks. Highly motivated, wants to be with her kids. Gender identity (if verbalized by the patient): Female Exam Narrative: GEN: Awake, alert, and appropriate to situation. Well appearing, well nourished, nontoxic, appears mildly uncomfortable. HEENT: No rhinorrhea noted, mucous membranes moist. No scleral icterus or conjunctival injection. CV: Normal rate, regular rhythm, S1S2 no M/G/R. 2+ distal pulses all extremities. No peripheral edema noted. PULM: Non-labored respiration. Clear to auscultation bilaterally. No wheezes, rales, rhonchi. GI: Abdomen soft, non -tender to palpation. No rigidity, distention or guarding.? NEURO: Normal speech. No lateralizing or focal deficits noted. HEAD: Normocephalic, atraumatic, no visible or palpable masses, depressions, or scaring. EYES: Visual acuity intact, conjunctiva clear, sclera non-icteric, pink conjunctiva. EOM intact, PERRL. EARS: External auditory canals clear and without induration or erythema. Tympanic membranes translucent, mobile, and without bulging or erythema. Ossicles normal in appearance, hearing intact. No drainage from either ear. NOSE: No external lesions, mucosa non-inflamed, septum midline, no sinus tenderness or nasal drainage. Turbinates without bogginess or erythema MOUTH: Oral mucosa pink. Good salivary pool.? Poor Dentition however no appreciable erythema or abscess of the gums, bleeding or swelling, no gingivitis. Breath did not smell malodorous or of alcohol PHARYNX: Mucosa non-inflamed, no tonsillar hypertrophy or exudate, thrush or cobble stoning NODES: No anterior or posterior cervical or supraclavicular lymphadenopathy NECK: Supple, without lesions, bruits, or adenopathy, thyroid non-enlarged and non-tender Course Vital Signs Vital signs: Vital Signs Temperature 36.3 C L 05/05/24 11:50 Pulse Rate 88 05/05/24 11:50 Respiratory Rate 18 05/05/24 11:50 Blood Pressure 110/76 05/05/24 11:50 Pulse Oximetry 100 05/05/24 11:50 Oxygen Delivery Room Air 05/05/24 11:50 Temperature 36.3 C L 05/05/24 11:50 Pulse Rate 88 05/05/24 11:50 Respiratory Rate 18 05/05/24 11:50 Blood Pressure 110/76 05/05/24 11:50 Pulse Oximetry 100
[2024-05-05 12:29] LABS: Pregnancy On Board Control Positive; Urine Pregnancy Test Negative
== END 2024-05-05 12:33 | disposition home or self-care (01) ==
PROVIDERS: Emergency Provider Family Medicine; PCP Family Medicine
DX: K02.9 Dental caries, unspecified (principal)
CPT/HCPCS: 81025; 99283

== ENCOUNTER 2024-05-09 10:08 | Outpatient (CLI) | payer OTHER, SELFPAY ==
[2024-05-09 10:25] LABS: Basophils Percent Auto 0.5 % (0.0-1.0); Eosinophils Percent Auto 1.7 % (1.0-6.0); Hematocrit 39.1 % (35.0-49.0); Hemoglobin 13.1 g/dL (12.0-15.0); Immature Granulocyte Absolute 0.02 K/mm3 (0.00-0.00); Immature Granulocyte Percent A 0.3 % (0.0-0.0); Lymphocytes Percent Auto 28.1 % (18.0-42.0); Mean Corpuscular HGB Conc 33.5 g/dL (32-36); Mean Corpuscular Hemoglobin 31.3 pg (27.0-31.0); Mean Corpuscular Volume 93.5 fL (78.0-102.0); Mean Platelet Volume 10.1 fl (9.2-11.8); Monocytes Percent Auto 7.7 % (2.0-11.0); Neutrophils Percent Auto 61.7 % (50.0-70.0); Platelet Count Result 274 K/mm3 (150-420); Red Blood Count 4.18 M/mm3 (4.20-5.40); Red Cell Distribution Width 12.6 % (11.6-14.4); White Blood Count 7.4 K/mm3 (4.8-10.8)
[2024-05-09 10:26] LABS: Basophils Absolute Auto 0.04 K/mm3 (0.00-0.10); Eosinophils Absolute Auto 0.13 K/mm3 (0.02-0.50); Lymphocytes Absolute Auto 2.09 K/mm3 (1.10-4.50); Monocytes Absolute Auto 0.57 K/mm3 (0.10-0.90); Neutrophils Absolute Auto 4.58 K/mm3 (1.70-7.20)
[2024-05-09 10:29] LABS: Add Urine Microscopic? NO; Appearance Urine Clear (Clear); Bilirubin Urine Negative (Negative); Blood Urine Negative (Negative); Color Urine Light Yellow (Yellow); Glucose Urine UA Negative (Negative); Ketones Urine Negative (Negative); Leukocyte Esterase Ur Negative LEU/UL (Negative); Nitrate Urine Negative (Negative); Protein Urine Negative (Negative); Urobilinogen Urine 0.2 mg/dL (0.2-1.0); pH Urine 7.5 (5.0-8.0)
[2024-05-09 10:40] LABS: INR 0.9; Partial Thromboplastin Time 26.9 Sec (23.9-30.70); Prothrombin Time 10.3 Seconds (9.50-12.1)
[2024-05-09 11:18] LABS: Alanine Aminotransferase 22 U/L (14-59); Albumin Level 3.9 g/dL (3.4-5.0); Alkaline Phosphatase 69 U/L (46-116); Anion Gap 8 mmol/L (4-12); Aspartate Amino Transferase 16 U/L (15-37); Bilirubin,Total 0.1 mg/dL (0.00-1.00); Blood Urea Nitrogen 16 mg/dL (7-18); Calcium 9.1 mg/dL (8.5-10.1); Carbon Dioxide 30 mmol/L (21-32); Chloride 102 mmol/L (98-108); Estimated Glomerular Filt Rate > 60; Glucose 52 mg/dL (70-99); Osmolality Calculated 288 mOsm/kg (285-295); Potassium 4.2 mmol/L (3.5-5.1); Sodium 140 mmol/L (136-145); Total Protein 6.9 g/dL (6.4-8.2)
[2024-05-09 11:31] LABS: HIV 1 P24 AG Negative (Negative); HIV 1/2 AB Negative (Negative)
[2024-05-10 08:16] LABS: Trichomonas Vag PCR NOT DETECTED (NOT DETECTE)
[2024-05-10 08:39] LABS: Chlamydia trachomatis NOT DETECTED (NOT DETECTE); Neisseria gonorrhoeae PCR NOT DETECTED (NOT DETECTE)
[2024-05-10 12:18] LABS: RPR Screen NON-REACTIVE (NON-REACTIVE)
== END 2024-05-09 10:09 | disposition home or self-care (01) ==
PROVIDERS: PCP Family Medicine; Visit Provider Family Medicine
DX: Z11.3 Encounter for screening for infections with a predominantly sexual mode of transmission (principal); R10.2 Pelvic and perineal pain; R23.3 Spontaneous ecchymoses
CPT/HCPCS: 36415; 80053; 81003; 84702; 85025; 85610; 85730; 86592; 87491; 87591; 87661; 87806

== ENCOUNTER 2024-06-12 13:45 | Outpatient (CLI) | payer OTHER, SELFPAY ==
[2024-06-12 15:27] LABS: Beta HCG Quantitative < 1.00 mIU/mL (0-6)
[2024-06-12 16:09] LABS: HIV 1 P24 AG Negative (Negative); HIV 1/2 AB Negative (Negative)
[2024-06-13 16:19] LABS: Hepatitis B Surface Antigen NON-REACTIVE (NON-REACTIVE); Hepatitis C Virus Antibody NON-REACTIVE (NON-REACTIVE)
[2024-06-14 02:53] LABS: Hepatitis A Antibody IgM NON-REACTIVE (NON-REACTIVE); Hepatitis B Core Antibody NON-REACTIVE (NON-REACTIVE)
[2024-06-15 10:53] LABS: RPR Screen NON-REACTIVE (NON-REACTIVE)
== END 2024-06-12 13:46 | disposition home or self-care (01) ==
LOC: CHSLAB 13:46
PROVIDERS: PCP Family Medicine; Visit Provider Student in an Organized Health Care Education/Training Program
DX: O02.1 Missed abortion (principal); Z20.2 Contact with and (suspected) exposure to infections with a predominantly sexual mode of transmission
CPT/HCPCS: 36415; 80074; 84702; 86592; 86695; 86696; 87806

== ENCOUNTER 2024-06-27 23:14 | Emergency (ER) | payer OTHER, SELFPAY ==
[2024-06-27 23:14] VITALS: BP 122/91; PULSE 91; RESP 20; TEMP 36.7; O2SAT 100
--- NOTE | 2024-06-27 23:17 | ED.FEMALEGU ---
HPI - Female Genitourinary General Chief complaint: Vaginal Bleeding Stated complaint: vaginal bleeding Source: patient Mode of arrival: ambulatory Limitations: no limitations History of Present Illness HPI Narrative: 24-year-old female smoker, A2 noted to be in February of 2024. On 05/09/2024 she had a beta hCG of 11 and 0 06/12/2024 she had a beta-hCG of less than 1. She had heavy bleeding in the intervening. and was thought to a miscarriage. She saw her ObG/analysis lead on 06/01/2024 who did an STD workup workup and was noted to be positive for bacterial vaginosis and Trichomonas for which she was prescribed Flagyl. She presents to the ED with -- heavy vaginal bleeding for the past 1 day. She has had irregular periods after her miscarriage. She started her menstrual bleeding yesterday with subsequently got heavy. -- Abdominal cramps. no fever or chills. No dysuria or hematuria. MD elicited complaint: vaginal bleeding Pertinent past history: STI/STD Onset (ago): day(s) ( One day) Severity: severe Quality of pain: cramping Vaginal bleeding: clots Exacerbating factors: none Relieving factors: none Associated symptoms: denies other symptoms Treatment prior to arrival: none Patient : No Related Data : 5 Para: 3 Allergies Allergy/AdvReac Type Severity Reaction Status Date / Time No Known Allergies Allergy Verified 06/27/24 23:36 Review of Systems Review of Systems: All systems reviewed & are unremarkable except as noted in HPI and below Constitutional: Constitutional: Reports as per HPI and Reports no additional constitutional complaints Eyes: Eyes: Reports as per HPI and Reports no additional eye complaints ENT: Reports system reviewed and no additional complaints, except as documented Cardiovascular: Cardiovascular: Reports as per HPI and Reports no additional cardiovascular complaints Respiratory: Respiratory: Reports as per HPI and Reports no additional respiratory complaints Gastrointestinal: Gastrointestinal: Reports as per HPI and Reports no additional gastrointestinal complaints Genitourinary: Genitourinary: Reports no additional female genitourinary complaints and Reports abnormal vaginal bleeding Musculoskeletal: Musculoskeletal: Reports no additional musculoskeletal complaints and Reports as per HPI Integumentary/Breasts: Skin/Breast: Reports system reviewed and no additional complaints, except as docu and Reports as per HPI Neurologic: Reports system reviewed and no additional complaints, except as documented and Reports as per HPI Psychiatric: Psychiatric: Reports no additional psychiatric complaints and Reports as per HPI Endocrine: Endocrine: Reports no additional endocrine complaints and Reports as per HPI Hematologic/Lymphatic: Hematologic/Lymphatic: Reports no additional hematologic/lymphatic complaints and Reports as per HPI Allergic/Immunologic: Allergic/Immunologic: Reports no additional allergic/immunologic complaints and Reports as per HPI [facility] Past Medical History Medical History Asthma exacerbation Incomplete miscarriage Nicotine dependence Surgical History Surgical History History of dilation and curettage 04/2021 History of tonsillectomy Family History Family History Other Family history non-contributory Social History Social History Years smoked: 5 Smoking status: Current every day smoker Tobacco type: cigarettes Alcohol intake: former Substance use: former Substance use type: methamphetamine Other substance usage details: off several weeks. Highly motivated, wants to be with her kids. Gender identity (if verbalized by the patient): Female Exam Narrative: unremarkable. Heart rate of 91. Const: G
[2024-06-27 23:51] LABS: Basophils Absolute Auto 0.04 K/mm3 (0.00-0.10); Basophils Percent Auto 0.4 % (0.0-1.0); Eosinophils Percent Auto 2.2 % (1.0-6.0); Hematocrit 37.1 % (35.0-49.0); Hemoglobin 12.7 g/dL (12.0-15.0); Immature Granulocyte Absolute 0.03 K/mm3 (0.00-0.00); Immature Granulocyte Percent A 0.3 % (0.0-0.0); Lymphocytes Absolute Auto 2.83 K/mm3 (1.10-4.50); Lymphocytes Percent Auto 30.6 % (18.0-42.0); Mean Corpuscular HGB Conc 34.2 g/dL (32-36); Mean Corpuscular Hemoglobin 31.4 pg (27.0-31.0); Mean Corpuscular Volume 91.6 fL (78.0-102.0); Mean Platelet Volume 9.7 fl (9.2-11.8); Monocytes Absolute Auto 0.71 K/mm3 (0.10-0.90); Monocytes Percent Auto 7.7 % (2.0-11.0); Neutrophils Absolute Auto 5.43 K/mm3 (1.70-7.20); Neutrophils Percent Auto 58.8 % (50.0-70.0); Platelet Count Result 311 K/mm3 (150-420); Red Blood Count 4.05 M/mm3 (4.20-5.40); Red Cell Distribution Width 12.4 % (11.6-14.4); White Blood Count 9.2 K/mm3 (4.8-10.8)
[2024-06-27 23:52] LABS: Add Urine Microscopic? YES; Appearance Urine Clear (Clear); Bilirubin Urine Negative (Negative); Blood Urine 2+ (Negative); Color Urine Yellow (Yellow); Glucose Urine UA Negative (Negative); Ketones Urine Negative (Negative); Leukocyte Esterase Ur Negative LEU/UL (Negative); Nitrate Urine Negative (Negative); Protein Urine Negative (Negative); Specific Grav Ur >= 1.030 (1.010-1.020); Urobilinogen Urine 0.2 mg/dL (0.2-1.0)
[2024-06-27 23:58] LABS: Bacteria Urine Trace /hpf; Pregnancy On Board Control Positive; RBC Urine 0-2 /hpf (0-2); Squamous Epithelial Cell Urine Few /hpf (Few); Urine Pregnancy Test Negative; WBC Urine 0-3 /hpf (0-3)
[2024-06-28 00:05] LABS: Partial Thromboplastin Time 27.3 Sec (23.9-30.70); Prothrombin Time 10.9 Seconds (9.50-12.1)
[2024-06-28 00:06] LABS: Alanine Aminotransferase 16 U/L (14-59); Albumin Level 3.6 g/dL (3.4-5.0); Alkaline Phosphatase 69 U/L (46-116); Anion Gap 8 mmol/L (4-12); Aspartate Amino Transferase 14 U/L (15-37); Bilirubin,Total 0.4 mg/dL (0.00-1.00); Blood Urea Nitrogen 16 mg/dL (7-18); Calcium 8.4 mg/dL (8.5-10.1); Carbon Dioxide 28 mmol/L (21-32); Chloride 102 mmol/L (98-108); Estimated CRCL calculation 85 ml/min; Estimated Glomerular Filt Rate > 60; Glucose 86 mg/dL (70-99); Osmolality Calculated 286 mOsm/kg (285-295); Potassium 3.8 mmol/L (3.5-5.1); Sodium 138 mmol/L (136-145); Total Protein 6.6 g/dL (6.4-8.2)
[2024-06-28 00:30] VITALS: BP 120/89; PULSE 88; RESP 18; O2SAT 98
== END 2024-06-28 00:30 | disposition home or self-care (01) ==
LOC: CHSED 06-28 00:29
PROVIDERS: Emergency Provider Internal Medicine Critical Care Medicine; PCP Family Medicine
DX: N93.8 Other specified abnormal uterine and vaginal bleeding (principal); F17.210 Nicotine dependence, cigarettes, uncomplicated
CPT/HCPCS: 36415; 80053; 81001; 81025; 85025; 85610; 85730; 99283

== ENCOUNTER 2025-04-27 10:26 | Emergency (ER) | payer OTHER, SELFPAY ==
[2025-04-27 10:26] VITALS: BP 117/76; PULSE 86; RESP 16; TEMP 36.2; O2SAT 100
--- OUTSIDE RECORDS SUMMARY | 2025-04-27 10:28 | XMS_ITS | Clinical Summary ---
Author Organization [facility] Address [address] [place] [id number] Care Team Providers Care Radiagraph Operator Name Role Phone None, Provider MD Primary Care Provider Unavaila ble Allergies No known active allergies Medications citalopram (CELEXA) 10 MG tablet Take 1 tablet (10 mg total) by mouth daily. 60 tablet 12/20/2020 Active Active Problems Problem Noted Date Diagnosed Date Uterine contractions during ([facility]) 12/19/2020 Retained products of concept ion after delivery without hemorrhage ([facility]) 12/19/2020 Social History Tobacco Use Types Packs/Day Years Used Date Smoking Tobacco: Never Assessed Depression Answer Date Recor ded Last EPDS Total Score 22 12/20/2020 Last EPDS Self Harm Result Unrecognized value Comments No Sex and Gender Information Value Date Recorded Sex Assigned at Not on file Legal Sex Female 7:42 AM CDT Gender Identity Not on file Sexual Orientation Not on file Last Filed Vital Signs Vital Sign Reading Time Taken Comments Blood Pressure 117/65 12/20/2020 5:06 AM CDT Pulse 88 12/20/2020 5:06 AM CDT Temperature 35.8 C (96.4 F) 12/20/2020 5:05 AM CDT Respiratory Rate 18 12/19/2020 2:15 PM CDT Oxygen Saturation 100% 12/19/2020 2:12 PM CDT Inhaled Oxygen Concentration - - Weight 74.8 kg (165 lb) 12/19/2020 2:15 PM CDT Height 160 cm (5' 3) 12/19/2020 2:15 PM CDT Body Mass Index 29.23 12/19/2020 2:15 PM CDT Plan of Treatment Health Maintenance Due Date Last Done Comments Cervical Cancer Screening Pap Smear (Age 21 to 29) Every 3 Years 2000 Cervical Cancer Screening 2000 Annual Physical 2003 DTaP, Tdap and Td Vaccines (5 - Tdap) 2011 04/24/2008, 03/30/2005, 05/25/2001, Additional history exists Hepatitis B Vaccines (1 of 3 - 19+ 3-dose series) 2019 COVID-19 Vaccine (2023- season) 2024 Meningococcal Vaccine Aged Out 06/05/2012 No lu twan eligible based on patient's age to complete this topic HPV Vaccines Completed 07/11/2015, 09/20, 06/05/2012 Hepatitis C Completed 12/19/2020 Meningococcal B Vaccine Aged Out No l onger eligible based on patient's age to complete this topic Pneumococcal Vaccine: Pediatrics (0 to 5 Years) and At-Risk Patients (6 to 49 Years) Aged Out No longer eligible based on patient's age to complete this topic RSV Immunizations Under 20 Months Aged Out No longer eligible based on patient's age to complete this topic Procedures Procedure Name Priority Date/Time Associated Diagnosis Comments HEPATITIS C ANTIBODY STAT 12/19/2020 1:45 PM CDT Precipitous delivery ([facility]) from Last 3 Months or Most Recently Relevant to Health Maintenance Results * HEPATITIS C ANTIBODY (12/19/2020 1:45 PM CDT) HEPATITIS C AB NON-REACTI VE NON-REACT ALESHA 12/19/2020 7:01 PM CDT [facility] Comment: ANTIBODIES TO HCV NOT DETECTED. DOES NOT EXCLUDE THE POSSIBILITY OF EXPOSURE TO HCV. 12/19/2020 1:45 PM CDT Xena Jeffries MD LABORATORY Final Result [facility] [address] [place] [address], [id number] from Last 3 Months or Most Recently Relevant to Health Maintenance Insurance [employer] Care Teams Radiagraph Operator Relationship Specialty Start Date End Date None, Provider, PCP - General 12/19/20
--- OUTSIDE RECORDS SUMMARY | 2025-04-27 10:28 | XMS_ITS | Continuity of Care Document ---
Author Organization [facility] Address [address] [place] [address] Phone Care Team Providers Care Dental Receptionist Name Role Phone Paulina Valencia Unavailable Unavailable Advance Directives Directive Yes / No Effective Date File Name No Information Encounters Encounter Description Practice Location Reason(s) For Visit Diagnoses Date Provider Providers Copied on Encounter [facility], [address], [place], [place], [id number], [place] tel:[phone] [facility] No Information [address] , [address], [place], [address], [place]. tel:[phone] Family History Family Member Type Diagnosis Age At Onset No Information Payers Payer name Insurance type Covered democrat ID Authoriza tion(s) Medicaid [facility] [id number] Social History Type Description Quantity Date Captured Comments Sex Female Smoking Status No Information Chief Complaint And Reason For Visit No Information Reason For Referral Reason For Referral No Information History Of Present Illness Encounter Date Complaint History Of Prese nt Illness No Information Functional Status Date Functional Assessmen t No Information Instructions Date Instruction Additional Infor mation No Information Assessments Type Assessment Date No Information Patient Care Teams Name Effective Dates (start - stop) Status Members No Information
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
--- OUTSIDE RECORDS SUMMARY | 2025-04-27 10:54 | XMS_ITS | Clinical Summary ---
Author Organization [facility] Address [address] [place] [address] Care Team Providers Care Roadmaster Name Role Phone None, Provider MD Primary Care Provider Unavaila ble Allergies No known active allergies Medications citalopram (CELEXA) 10 MG tablet Take 1 tablet (10 mg total) by mouth daily. 60 tablet 12/20/2020 Active Active Problems Problem Noted Date Diagnosed Date Uterine contractions during ([facility]) 12/19/2020 Retained products of concept ion after delivery without hemorrhage ([facility]) 12/19/2020 Social History Tobacco Use Types Packs/Day [...] STAT 12/19/2020 1:45 PM CDT Precipitous delivery ([facility]) from Last 3 Months or Most Recently Relevant to Health Maintenance Results * HEPATITIS C ANTIBODY (12/19/2020 1:45 PM CDT) HEPATITIS C AB NON-REACTI VE NON-REACT ALESHA 12/19/2020 7:01 PM CDT [facility] Comment: ANTIBODIES TO HCV NOT DETECTED. DOES NOT EXCLUDE THE POSSIBILITY OF EXPOSURE TO HCV. 12/19/2020 1:45 PM CDT Xena Jeffries MD LABORATORY Final Result [facility] [address] [place] [address], [id number] from Last 3 Months or Most Recently Relevant to Health Maintenance Insurance [employer] Care Teams Roadmaster Relationship Specialty Start Date End Date None, Provider, PCP - General 12/19/20
--- OUTSIDE RECORDS SUMMARY | 2025-04-27 10:54 | XMS_ITS | Continuity of Care Document ---
Author Organization [facility] Address [address] [place] [address] Phone Care Team Providers Care Principal Examiner Name Role Phone Paulina Valencia Unavailable Unavailable Advance Directives Directive Yes / No Effective Date File Name No Information Encounters Encounter Description Practice Location Reason(s) For Visit Diagnoses Date Provider Providers Copied on Encounter [facility], [address], [place], [place], [id number], [place] tel:[phone] [facility] No Information [address] , [address], [place], [address], [place]. tel:[phone] Family History Family Member Type Diagnosis Age At Onset No Information Payers Payer name Insurance type Covered constitution party ID Authoriza tion(s) Medicaid [facility] [id number] Social History Type Description Quantity Date Captured [...]
[2025-04-27 11:14] LABS: Hematocrit 37.8 % (35.0-49.0); Hemoglobin 12.6 g/dL (12.0-15.0); Immature Granulocyte Percent A 0.2 % (0.0-0.0); Lymphocytes Absolute Auto 1.87 K/mm3 (1.10-4.50); Mean Corpuscular HGB Conc 33.3 g/dL (32-36); Mean Corpuscular Hemoglobin 31.3 pg (27.0-31.0); Mean Corpuscular Volume 94.0 fL (78.0-102.0); Nucleated Red Blood Cells Absolute Auto 0.00 K/mm3 (0.00-0.00); Nucleated Red Blood Cells Perc 0.0 % (0-0.0); Platelet Count Result 235 K/mm3 (150-420); Red Blood Count 4.02 M/mm3 (4.20-5.40); White Blood Count 5.1 K/mm3 (4.8-10.8)
[2025-04-27 11:16] LABS: Add Urine Microscopic? YES; Appearance Urine Clear (Clear); Glucose Urine UA Negative (Negative); Leukocyte Esterase Ur Trace LEU/UL (Negative); Nitrate Urine Negative (Negative); Specific Grav Ur 1.025 (1.010-1.020)
[2025-04-27 11:24] LABS: Pregnancy On Board Control Positive
[2025-04-27 11:26] LABS: Alanine Aminotransferase 15 U/L (6-35); Albumin Level 4.3 g/dL (3.5-5.1); Alkaline Phosphatase 46 U/L (38-126); Anion Gap 2 mmol/L (4-12); Aspartate Amino Transferase 24 U/L (14-36); Bilirubin,Total 0.4 mg/dL (0.2-1.3); Blood Urea Nitrogen 14 mg/dL (7-17); Calcium 9.2 mg/dL (8.4-10.2); Carbon Dioxide 27 mmol/L (22-30); Chloride 108 mmol/L (98-107); Estimated CRCL calculation 99 ml/min; Estimated Glomerular Filt Rate > 60; Glucose 89 mg/dL (65-110); Lipase 51 U/L (23-300); Osmolality Calculated 283 mOsm/kg (285-295); Potassium 4.2 mmol/L (3.4-5.0); Sodium 137 mmol/L (137-145); Total Protein 6.9 g/dL (6.3-8.2)
[2025-04-27 11:29] LABS: INR 0.9; Partial Thromboplastin Time 27.1 Sec (23.9-30.70); Prothrombin Time 10.5 Seconds (9.50-12.1)
[2025-04-27 11:44] LABS: CRP 0.8 mg/dL (<1.0)
[2025-04-27 11:56] LABS: HIV 1 P24 AG Negative (Negative); HIV 1/2 AB Negative (Negative)
[2025-04-28 13:07] LABS: RPR Non Reactive (Non Reactive)
--- NOTE | 2025-04-30 15:53 | PC.NURSE ---
[id number] contacted pt about preliminary URINE CULTURE CC POSITIVE FOR I COLI PER DR ELLIOTT KEFLEX 500MG BID FOR 7 DAYS CALLED TO LAURIE KENT AT [phone]
--- NOTE | 2025-05-02 13:29 | PC.NURSE ---
final urine culture reviewed. e. coli isolated. pt was prescribed flagyl at discharge. sensitivity report does not show this rx to be effective. erp, dr brunson reviewed report and prescribed macrobid 100mg bid for 7 days, no refills. pt called to confirm pharmacy. pt instructed to start this new rx rod and complete it along with pushing fluids. pt verbalizes understanding. new rx called in to [facility] [place].
== END 2025-04-27 11:25 | disposition left against medical advice (07) ==
PROVIDERS: Emergency Provider Internal Medicine Critical Care Medicine; PCP Family Medicine
DX: N39.0 Urinary tract infection, site not specified (principal); N91.2 Amenorrhea, unspecified; Z11.3 Encounter for screening for infections with a predominantly sexual mode of transmission; F17.210 Nicotine dependence, cigarettes, uncomplicated
CPT/HCPCS: 36415; 80053; 81001; 81025; 83605; 83690; 85025; 85610; 85730; 86140; 86592; 87491; 87591; 87806; 99284

== ENCOUNTER 2025-06-12 22:15 | Emergency (ER) | payer OTHER, SELFPAY ==
[2025-06-12] VITALS (8 sets, daily range): BP systolic 103–120; BP diastolic 60–74; PULSE 78–120; RESP 13–26; TEMP 36.2–36.6; O2SAT 92–100
--- NOTE | ~2025-06-12 | XR_ITS ---
Examination: XR chest 1V portable Clinical History: oVERDOSE/PATIENT STATES NO CHEST COMPLAINTS Comparison: 01/01/2024 Technique: Portable AP Findings: Heart size normal. Lungs clear. No acute bony abnormality. IMPRESSION: 1. No acute cardiopulmonary findings given portable technique. Reviewed, dictated and finalized at location R.
--- NOTE | 2025-06-12 22:17 | ECG_ITS ---
Test Date: 2025-06-12 22:12:58 Measurements Intervals [place] Rate: 110 P: 70 MT: 157 QRS: 73 QRSD: 91 T: 65 QT: 368 QTc: 498 Interpretive Statements SINUS TACHYCARDIA POSSIBLE LEFT ATRIAL ENLARGEMENT [-0.1mV P-WAVE IN V1/V2] NONSPECIFIC T-WAVE ABNORMALITY ABNORMAL RHYTHM ECG No previous ECG available for comparison Electronically Signed On 06-13-2025 06:38:16 CDT by Delfina Crystal M.D.
--- NOTE | 2025-06-12 22:18 | PC.NURSE ---
POISION CONTROL NOTIFIED. OSKAR CASE # [id number]. ANTICHOLINERGIC TOXICITY. SYMPTOMS, TACHYCARDIA, HYPERTENSION, FEVER, HALLUCINATIONS, AGITATION, PROLONGED QRS. ADD CPK TO BLOOD WORK. INSTRUCTED TO GIVE BENZODIAZEPINES, FLUIDS. HIGH DOSES SUCH ATIVAN 1-2 MG EVERY 5-10 MINUTES FOR AGITATION. ATTEMPT TO KEEP PATIENT SEDATED. IF PATIENT HAS PROLONGED QRS >120 THEN GIVEN BICARB BOLUS. ALL INFORMATION GIVEN TO DR ELLIOTT
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
[2025-06-12 22:36] LABS: Hematocrit 37.4 % (35.0-49.0); Hemoglobin 12.8 g/dL (12.0-15.0); Immature Granulocyte Percent A 0.2 % (0.0-0.0); Lymphocytes Absolute Auto 3.26 K/mm3 (1.10-4.50); Mean Corpuscular HGB Conc 34.2 g/dL (32-36); Mean Corpuscular Hemoglobin 31.3 pg (27.0-31.0); Mean Corpuscular Volume 91.4 fL (78.0-102.0); Nucleated Red Blood Cells Absolute Auto 0.00 K/mm3 (0.00-0.00); Nucleated Red Blood Cells Perc 0.0 % (0-0.0); Platelet Count Result 310 K/mm3 (150-420); Red Blood Count 4.09 M/mm3 (4.20-5.40); White Blood Count 9.4 K/mm3 (4.8-10.8)
[2025-06-12] MEDS: diazePAM INJ (*CRX) 10 MG/2 ML SYRINGE 5 MG IV PUSH (22:42)
--- NOTE | 2025-06-12 22:44 | PC.NURSE ---
soft restraints to bilateral arms
[2025-06-12] MEDS: SODIUM CHLORIDE 0.9% IV 1,000 ML 999 ML IV CONT (22:49)
[2025-06-12 22:50] LABS: Acetaminophen < 10 ug/mL (10-30); Salicylate < 1.0 mg/dL (2-20)
--- NOTE | 2025-06-12 22:50 | PC.NURSE ---
PATIENT BROKE OUT OF SOFT RESTRAINTS. BLUE WRIST AND RED ANKLE RESTRAINTS APPLIED. CONTINUES TO TRY AND GET UP, HITTING STAFF, ALTERED, NON SENSICAL SPEECH. KICKING. BOYFRIEND AT HER SIDE TRYING TO CALM PATIENT DOWN.
[2025-06-12] MEDS: diazePAM INJ (*CRX) 10 MG/2 ML SYRINGE 5 MG IM ×2 (23:05→23:43)
--- NOTE | 2025-06-12 23:07 | PC.NURSE ---
PATIENT WILL LAY BACK ON STRETCHER, MUMBLE THEN GO TO SLEEP. WAKES BACK UP AND TRIES TO GET OUT OF THE BED AND PULL IV LINES OUT, DISHWASHER BUSSER OFF.
[2025-06-12 23:10] LABS: Troponin I < 0.012 ng/mL (0.000-0.034)
[2025-06-12 23:21] LABS: Sodium 144 mmol/L (137-145); Thyroid Stimulating Hormone 0.933 uIU/mL (0.465-4.680)
[2025-06-12 23:22] LABS: Anion Gap 11 mmol/L (4-12); Blood Urea Nitrogen 15 mg/dL (7-17); Calcium 10.1 mg/dL (8.4-10.2); Carbon Dioxide 25 mmol/L (22-30); Chloride 108 mmol/L (98-107); Estimated CRCL calculation 89 ml/min; Estimated Glomerular Filt Rate > 60; Glucose 65 mg/dL (65-110); Osmolality Calculated 296 mOsm/kg (285-295); Potassium 3.5 mmol/L (3.4-5.0)
[2025-06-12 23:23] LABS: Alanine Aminotransferase 16 U/L (6-35); Albumin Level 4.7 g/dL (3.5-5.1); Alkaline Phosphatase 67 U/L (38-126); Aspartate Amino Transferase 27 U/L (14-36); Bilirubin,Total 1.0 mg/dL (0.2-1.3); Creatine Kinase 77 U/L (30-135); Total Protein 8.4 g/dL (6.3-8.2)
[2025-06-12] MEDS: SODIUM CHLORIDE 0.9% IV 1,000 ML 200 ML IV CONT (23:30)
[2025-06-12] MEDS: OLANZapine 5 MG, WATER, STERILE FOR INJECTION 2.1 ML IM (23:44)
[2025-06-13] VITALS (24 sets, daily range): BP systolic 105–130; BP diastolic 53–89; PULSE 74–105; RESP 16–27; TEMP 35.9–36.4; O2SAT 97–100
--- NOTE | 2025-06-13 | PC.NURSE ---
PATIENT WILL LAY DOWN ON STRETCHER. THEN ATTEMPT TO GET UP AGAIN. ZOFIA KAHN, SHARON PARKS, TORI KAHN AND DR ELLIOTT ALL AT THE BEDSIDE
[2025-06-13] MEDS: OLANZapine 5 MG, WATER, STERILE FOR INJECTION 2.1 ML IM (00:09)
[2025-06-13 00:44] LABS: Add Urine Microscopic? YES; Glucose Urine UA Negative (Negative); Leukocyte Esterase Ur 2+ LEU/UL (Negative); Nitrate Urine Negative (Negative); Specific Grav Ur 1.025 (1.010-1.020)
[2025-06-13 00:49] LABS: Pregnancy On Board Control Positive
[2025-06-13 00:55] LABS: Appearance Urine Cloudy (Clear)
[2025-06-13 01:38] LABS: Cannabinoid Screen Urine Positive (Negative)
[2025-06-13] MEDS: levoFLOXacin 500 MG/D5W 100 ML 500 MG/100 ML BAG 100 MG IVPB (01:49)
--- NOTE | 2025-06-13 02:55 | PC.NURSE ---
PATIENT LEFT WITH EMS. PATIENT SAT UP ON STRETCHER. STATES YOU ARE ALL FUCKING BITCHES. FUCK YOU. THEN LAID BACK DOWN. MOVED OVER TO EMS STRETCHER. BEGAN TO CURSE AGAIN.
== END 2025-06-13 02:58 | disposition short-term general hospital (02) ==
PROVIDERS: Emergency Provider Emergency Medicine; Referring Provider Family Medicine
DX: T50.902A Poisoning by unspecified drugs, medicaments and biological substances, intentional self-harm, initial encounter (principal); F29 Unspecified psychosis not due to a substance or known physiological condition; F17.210 Nicotine dependence, cigarettes, uncomplicated
CPT/HCPCS: 36415; 71045; 80053; 80143; 80179; 80307; 81001; 81025; 82077; 82550; 82948; 84443; 84484; 85025; 93005; 96361; 96365; 96372; 96374; 99285; J1956; J2359; J3360; J7030

== ENCOUNTER 2025-09-03 01:42 | Emergency (ER) | payer OTHER, SELFPAY ==
--- NOTE | ~2025-09-03 | XR_ITS ---
Examination: XR chest 1V portable Clinical History: Seizure-like activities Comparison: 06/12/2025 Technique: PA upright Findings: Heart size normal. Lungs clear. No acute bony abnormality. IMPRESSION: 1. No acute cardiopulmonary findings. Reviewed, dictated and finalized at location R. S CONTRACT ADMINISTRATOR
--- NOTE | ~2025-09-03 | CT_ITS ---
CT HEAD NON-CONTRAST Clinical History: Seizure-like activities Comparison: None Technique: Unenhanced axial images skull base to vertex Coronal, sagittal reformats CT images acquired with automatic exposure control for dose reduction DLP: 681 mGy-cm Findings: Sulci, ventricles: Unremarkable. No intracerebral hemorrhage. No evidence acute territorial infarct. No mass effect, midline shift. Bony calvarium intact. Visualized paranasal sinuses: Clear. Mastoid air cells: Clear. IMPRESSION: 1. No acute intracranial findings. Reviewed, dictated and finalized at location R. RACTIVE MARKETING STRATEGIST
[2025-09-03 01:43] VITALS: BP 130/90; PULSE 71; RESP 19; TEMP 36; O2SAT 100
[2025-09-03 01:45] VITALS: O2SAT 100
--- NOTE | 2025-09-03 02:01 | ED_ITS ---
HPI - Seizure General Chief Complaint: Seizure Stated Complaint: possible seizure activity Source: patient and EMS Mode of arrival: EMS Limitations: no limitations History of Present Illness HPI Narrative: 25 years old white female came to the ED from home by ambulance with seizure- like activities in the last 1 hour. Patient was asleep in bed, boyfriend notice that patient suddenly talk a deep gasping breath and became stiff and rigid all over, eyes rolling backward,, eyes rolled back word and and shaking for 2-3 minutes subsequently patient was disoriented for 5-10 minutes then back to normal. In the ED patient complaining of tongue bite, denies urine incontinence, denied having history of seizure in the past. Patient is telling me that she smoks meth every day. Last meth use over 13 hours ago patient denies other drug use or alcohol. History of anxiety depression. Related Data Allergies Allergy/AdvReac Type Severity Reaction Status Date / Time No Known Allergies Allergy Verified 09/03/25 01:48 Review of Systems 2 Review of Systems: All systems reviewed & are unremarkable except as noted in HPI and below PMFSH Past Medical History Medical History Incomplete miscarriage Nicotine dependence Asthma exacerbation Surgical History Surgical History History of dilation and curettage 04/2021 History of tonsillectomy Family History Family History Other Family history non-contributory Social History Social History Years smoked: 5 Smoking status: Current every day smoker Tobacco type: cigarettes Alcohol intake: former Substance use: former Substance use type: marijuana and unknown Other substance usage details: off several weeks. Highly motivated, wants to be with her kids. Gender identity (if verbalized by the patient): Female Exam 2 Narrative: General appearance: Well-developed, well-nourished Skin: Normal color Head: Normocephalic, nontraumatic Eyes: Clear conjunctiva ENT: Oropharynx normal, ears normal, nose normal, left-sided tongue bite Neck: Supple, nontender Chest and respiratory: Airway patent, no respiratory distress, no accessory muscle use Heart: Regular rate/rhythm Abdomen: Soft, nontender, no organomegaly, quiet bowel sounds Vascular: Normal peripheral pulses, normal capillary refill. Musculoskeletal: Normal range of motion, nontender back Neurologic: Alert and oriented ?3, ABATEMENT WORKER is normal as tested, no gross motor deficit Course Vital Signs Vital signs: Vital Signs Temperature 36.0 C L 09/03/25 01:43 Pulse Rate 71 09/03/25 01:43 Respiratory Rate 19 09/03/25 01:43 Blood Pressure 130/90 09/03/25 01:43 Pulse Oximetry 100 09/03/25 01:43 Oxygen Delivery Room Air 09/03/25 01:43 Temperature 36.0 C L 09/03/25 01:43 Pulse Rate 74 09/03/25 03:28 Respiratory Rate 18 09/03/25 03:28 Blood Pressure 111/71 09/03/25 03:28 Pulse Oximetry 100 09/03/25 03:28 Oxygen Delivery Room Air 09/03/25 03:28 MDM MDM Narrative Medical decision making narrative: Patient came to the ED from home by ambulance with seizure-like activities within 1 hour prior to arrival. Vital signs are stable Physical examination showing tongue bite otherwise within normal limit Differential diagnosis include seizure-like activity, electrolyte imbalance, dehydration, urinary tract infection, polysubstance abuse, intracranial abnormalities. Blood workup included CBC, CMP, CPK showed insignificant abnormality Urinalysis showed evidence of infection Urine drug screen positive for amphetamine and cannabis CT head without contrast showed no acute abnormality Chest x-ray showed no acute abnormality Diagnosis urinary tract infection, seizure-like activities, meth abuse. Urinary tract infection can increase body stress which lowers the seizure threshold. And trigger seizure-like activities. Patient was accepted by Dr. Cristobal the hospitalist at [facility]. Patient declined hospitalization or transfer fair and signed against medical advice. I declare that I have personally explained to the patient the risks and consequences involved in leaving this facility at this time. the benefits of continued treatment and/or hospitalization. And the alternatives. If any. to continued treatment and/or hospitalization. if applicable.I have not identified any psychosis, drugs, mental illness, or medical illness that alters decision- making capacity (reasoning abilities ). Differential Diagnosis Differential Diagnosis: As above Lab Data MDM Lab Attestation statement: I personally reviewed the patient's lab results. 09/03/25 02:37 09/03/25 02:37 Labs: Lab Results 09/03/25 09/03/25 09/03/25 Range/Units 02:10 02:25 02:37 WBC 10.8 (4.8-10.8) K/mm3 RBC 4.20 (4.20-5.40) M/mm3 Hgb 12.7 (12.0-15.0) g/dL Hct 39.5 (35.0-49.0) % MCV 94.0 (78.0-102.0) fL MCH 30.2 (27.0-31.0) pg MCHC 32.2 (32-36) g/dL RDW 13.3 (11.6-14.4) % Plt Count 307 (150-420) K/mm3 MPV 9.6 (9.2-11.8) fl Immature Gran % (Auto) 1.0 H (0.0-0.0) % Neut % (Auto) 71.7 H (50.0-70.0) % Lymph % (Auto) 19.6 (18.0-42.0) % [place] % (Auto) 6.4 (2.0-11.0) % Eos % (Auto) 0.8 L (1.0-6.0) % Baso % (Auto) 0.5 (0.0-1.0) % Lymph # (Auto) 2.11 (1.10-4.50) K/mm3 [place] # (Auto) 0.69 (0.10-0.90) K/mm3 Eos # (Auto) 0.09 (0.02-0.50) K/mm3 Baso # (Auto) 0.05 (0.00-0.10) K/mm3 Abs Immat Gran (auto) 0.11 H (0.00-0.00) K/mm3 Absolute Neuts (auto) 7.74 H (1.70-7.20) K/mm3 Absolute Nucleated RBC 0.00 (0.00-0.00) K/mm3 Nucleated RBC % 0.0 (0-0.0) % Sodium 137 (137-145) mmol/L Potassium 3.9 (3.4-5.0) mmol/L Chloride 104 (98-107) mmol/L Carbon Dioxide 27 (22-30) mmol/L Anion Gap 6 (4-12) mmol/L BUN 15 (7-17) mg/dL Creatinine 0.75 (0.7-1.0) mg/dL Estim Creat Clear Calc 99 ml/min Estimated GFR > 60 (59 - ) Glucose 94 (65-110) mg/dL POC Capillary Glucose 77 (65-105) mg/dl Calculated Osmolality 284 L (285-295) mOsm/kg Calcium 9.2 (8.4-10.2) mg/dL Total Bilirubin 0.4 (0.2-1.3) mg/dL AST 36 (14-36) U/L ALT 74 H (6-35) U/L Alkaline Phosphatase 81 (38-126) U/L Total Creatine Kinase 54 (30-135) U/L Total Protein 7.0 (6.3-8.2) g/dL Albumin 4.4 (3.5-5.1) g/dL TSH (0.465-4.680) uIU/mL Urine Color Light yellow (Yellow) Urine Appearance Clear (Clear) Urine pH 6.0 (5.0-8.0) Ur Specific [place] >= 1.030 H (1.010-1.020) Urine Protein Trace H (Negative) Urine Glucose (UA) Negative (Negative) Urine Ketones Negative (Negative) Ur Blood (Man) Negative (Negative) Urine Nitrate Positive H (Negative) Urine Bilirubin Negative (Negative) Urine Urobilinogen 0.2 (0.2-1.0) mg/dL Leukocyte Esterase Rfl Trace H (Negative) LARA/UL Urine RBC 0-2 (0-2) /hpf Urine WBC 10-15 H (0-3) /hpf Ur Squamous Epith Cells Moderate H (Few) /hpf Urine Bacteria 3+ H (None) /hpf Urine Test Negative Salicylates < 1.0 L (2-20) mg/dL Urine Opiates Screen Negative (Negative) Urine Methadone Screen Negative (Negative) Acetaminophen < 10 L (10-30) ug/mL Ur Barbiturates Screen Negative (Negative) Ur Phencyclidine Scrn Negative (Negative) Ur Amphetamine Screen Positive A (Negative) U Benzodiazepines Scrn Negative (Negative) Urine Cocaine Screen Negative (Negative) U Cannabinoids Screen Positive A (Negative) Ethyl Alcohol < 10 (<10) mg/dL 09/03/25 Range/Units 02:38 WBC (4.8-10.8) K/mm3 RBC (4.20-5.40) M/mm3 Hgb (12.0-15.0) g/dL Hct (35.0-49.0) % MCV (78.0-102.0) fL MCH (27.0-31.0) pg MCHC (32-36) g/dL RDW (11.6-14.4) % Plt Count (150-420) K/mm3 MPV (9.2-11.8) fl Immature Gran % (Auto) (0.0-0.0) % Neut % (Auto) (50.0-70.0) % Lymph % (Auto) (18.0-42.0) % [place] % (Auto) (2.0-11.0) % Eos % (Auto) (1.0-6.0) % Baso % (Auto) (0.0-1.0) % Lymph # (Auto) (1.10-4.50) K/mm3 [place] # (Auto) (0.10-0.90) K/mm3 Eos # (Auto) (0.02-0.50) K/mm3 Baso # (Auto) (0.00-0.10) K/mm3 Abs Immat Gran (auto) (0.00-0.00) K/mm3 Absolute Neuts (auto) (1.70-7.20) K/mm3 Absolute Nucleated RBC (0.00-0.00) K/mm3 Nucleated RBC % (0-0.0) % Sodium (137-145) mmol/L Potassium (3.4-5.0) mmol/L Chloride (98-107) mmol/L Carbon Dioxide (22-30) mmol/L Anion Gap (4-12) mmol/L BUN (7-17) mg/dL Creatinine (0.7-1.0) mg/dL Estim Creat Clear Calc ml/min Estimated GFR (59 - ) Glucose (65-110) mg/dL POC Capillary Glucose (65-105) mg/dl Calculated Osmolality (285-295) mOsm/kg Calcium (8.4-10.2) mg/dL Total Bilirubin (0.2-1.3) mg/dL AST (14-36) U/L ALT (6-35) U/L Alkaline Phosphatase (38-126) U/L Total Creatine Kinase (30-135) U/L Total Protein (6.3-8.2) g/dL Albumin (3.5-5.1) g/dL TSH 1.830 (0.465-4.680) uIU/mL Urine Color (Yellow) Urine Appearance (Clear) Urine pH (5.0-8.0) Ur Specific [place] (1.010-1.020) Urine Protein (Negative) Urine Glucose (UA) (Negative) Urine Ketones (Negative) Ur Blood (Man) (Negative) Urine Nitrate (Negative) Urine Bilirubin (Negative) Urine Urobilinogen (0.2-1.0) mg/dL Leukocyte Esterase Rfl (Negative) LARA/UL Urine RBC (0-2) /hpf Urine WBC (0-3) /hpf Ur Squamous Epith Cells (Few) /hpf Urine Bacteria (None) /hpf Urine Test Salicylates (2-20) mg/dL Urine Opiates Screen (Negative) Urine Methadone Screen (Negative) Acetaminophen (10-30) ug/mL Ur Barbiturates Screen (Negative) Ur Phencyclidine Scrn (Negative) Ur Amphetamine Screen (Negative) U Benzodiazepines Scrn (Negative) Urine Cocaine Screen (Negative) U Cannabinoids Screen (Negative) Ethyl Alcohol (<10) mg/dL Imaging Data Radiologist's impression: CT head without contrast showed Unremarkable abnormalities, there appeared to be calcifications in the basal ganglia regions Chest x-ray showed no acute abnormalities ECG Data EKG #1: Attestation: I personally reviewed and interpreted this ECG as follows: ECG completion date: 09/03/25 Prior ECG tracings: not available for review Interpretation: Sinus bradycardia at 59 beats per minute otherwise normal EKG Critical Care Time Critical Care Time Critical Care Time: No Time Type: Intermittent Initial evaluation, discuss w/ involved parties, attempting to gather old records: 10 minutes Documenting medical record: 5 minutes Review of results (EKG's, labs, imaging): 5 minutes Serial repeat bedside evaluation: 10 minutes Discussing case with multiple memebers of the care team and consultants: 5 minutes Total Critical Care Time: 35 Discharge Plan Discharge Clinical Impression: Observed seizure-like activity, Urinary tract infection Patient Disposition: Left Against Medical Advice Condition: Guarded Prognosis Patient Language: Yoruba Follow-up/Referrals: UNKNOWN,DOCTOR [Primary Care Provider]
--- NOTE | 2025-09-03 02:02 | ECG_ITS ---
Test Date: 2025-09-03 02:23:23 Measurements Intervals [place] Rate: 59 P: -10 [place]: 150 QRS: 72 QRSD: 85 T: 60 QT: 412 QTc: 409 Interpretive Statements SINUS BRADYCARDIA BASELINE ARTIFACT- I, II, III, AVR, AVL, AVF, V1-V6 BORDERLINE ECG Compared to ECG 06/12/2025 22:12:58 HEART RATE HAS DECREASED Electronically Signed On 09-03-2025 06:24:15 DIRECTOR OF EDUCATION by Dimitrios Hassan D.O.
[2025-09-03] MEDS: levETIRAcetam 1000MG/NACL100ML 1,000 MG/100 ML BAG 400 MG IVPB (02:19)
[2025-09-03 02:25] LABS: Pregnancy On Board Control Positive
[2025-09-03 02:30] LABS: Add Urine Microscopic? YES; Appearance Urine Clear (Clear); Glucose Urine UA Negative (Negative); Leukocyte Esterase Ur Trace LEU/UL (Negative); Nitrate Urine Positive (Negative); Specific Grav Ur >= 1.030 (1.010-1.020)
[2025-09-03 02:43] LABS: Cannabinoid Screen Urine Positive (Negative)
[2025-09-03 02:50] LABS: Hematocrit 39.5 % (35.0-49.0); Hemoglobin 12.7 g/dL (12.0-15.0); Immature Granulocyte Percent A 1.0 % (0.0-0.0); Lymphocytes Absolute Auto 2.11 K/mm3 (1.10-4.50); Mean Corpuscular HGB Conc 32.2 g/dL (32-36); Mean Corpuscular Hemoglobin 30.2 pg (27.0-31.0); Mean Corpuscular Volume 94.0 fL (78.0-102.0); Nucleated Red Blood Cells Absolute Auto 0.00 K/mm3 (0.00-0.00); Nucleated Red Blood Cells Perc 0.0 % (0-0.0); Platelet Count Result 307 K/mm3 (150-420); Red Blood Count 4.20 M/mm3 (4.20-5.40); White Blood Count 10.8 K/mm3 (4.8-10.8)
[2025-09-03 02:55] LABS: Acetaminophen < 10 ug/mL (10-30); Salicylate < 1.0 mg/dL (2-20); Sodium 137 mmol/L (137-145)
[2025-09-03 02:56] LABS: Alanine Aminotransferase 74 U/L (6-35); Anion Gap 6 mmol/L (4-12); Aspartate Amino Transferase 36 U/L (14-36); Bilirubin,Total 0.4 mg/dL (0.2-1.3); Blood Urea Nitrogen 15 mg/dL (7-17); Calcium 9.2 mg/dL (8.4-10.2); Carbon Dioxide 27 mmol/L (22-30); Chloride 104 mmol/L (98-107); Creatine Kinase 54 U/L (30-135); Estimated CRCL calculation 99 ml/min; Estimated Glomerular Filt Rate > 60; Glucose 94 mg/dL (65-110); Osmolality Calculated 284 mOsm/kg (285-295); Potassium 3.9 mmol/L (3.4-5.0)
[2025-09-03 02:57] LABS: Albumin Level 4.4 g/dL (3.5-5.1); Alkaline Phosphatase 81 U/L (38-126); Total Protein 7.0 g/dL (6.3-8.2)
--- NOTE | 2025-09-03 03:24 | PC.NURSE ---
Pt sleeping, resting comfortable, RR even and nonlabored. B-friend at bedside, VSS.
[2025-09-03 03:25] LABS: Thyroid Stimulating Hormone 1.830 uIU/mL (0.465-4.680)
[2025-09-03 03:28] VITALS: BP 111/71; PULSE 74; RESP 18; O2SAT 100
[2025-09-03] MEDS: cefTRIAXone 1 GM in SODIUM CHLORIDE 0.9% IV 50 ML 100 ML IVPB (03:53)
--- NOTE | 2025-09-03 04:22 | PC.NURSE ---
Explained to pt about need for transfer d/t new onset of seizure activity. Pt was agreeable originally for transfer to [place] or wherever if needed. After acceptance for transfer to [facility] pt decided she did not want to transfer and wants to go home. Explained risks and benefits to pt and that she was accepted to [facility] and were waiting for bed. ERP Dr Leo in to speak w/ pt about transfer need and risks/benefits but pt still adamet about leaving and wants to go home. AMA paperwork signed and pt advised f/u w/ her PCP.
--- NOTE | 2025-09-03 04:28 | PC.NURSE ---
Called [facility] to cancel transfers, pt left AMA.
[2025-09-03 04:30] VITALS: BP 118/76; PULSE 78; RESP 18; TEMP 36.6; O2SAT 99
== END 2025-09-03 04:30 | disposition left against medical advice (07) ==
PROVIDERS: Emergency Provider Emergency Medicine
DX: R56.9 Unspecified convulsions (principal); N39.0 Urinary tract infection, site not specified; F15.19 Other stimulant abuse with unspecified stimulant-induced disorder; F17.210 Nicotine dependence, cigarettes, uncomplicated
CPT/HCPCS: 36415; 70450; 71045; 80053; 80143; 80179; 80307; 81001; 81025; 82077; 82550; 82948; 84443; 85025; 87086; 93005; 96365; 96367; 99284; J0696; J1953

== ENCOUNTER 2025-09-07 22:56 | Emergency (ER) | payer OTHER, SELFPAY ==
[2025-09-07] VITALS (8 sets, daily range): BP systolic 99–125; BP diastolic 63–77; PULSE 77–96; RESP 12–17; TEMP 36.3; O2SAT 91–100
--- NOTE | ~2025-09-07 | XR_ITS ---
Examination: XR chest 1V Clinical History: seizures Comparison: 09/03/2025 Technique: Portable AP Findings: Heart size normal. Lungs clear. No acute bony abnormality. IMPRESSION: 1. No acute cardiopulmonary findings given portable technique. Reviewed, dictated and finalized at location R. BOSCOPE OPERATOR
--- NOTE | ~2025-09-07 | CT_ITS ---
CT HEAD NON-CONTRAST Clinical History: SEIZURE TONIGHT AND ON 2024. NO HX OF SEIZURE PRIOR Comparison: 09/03/2025 Technique: Unenhanced axial images skull base to vertex Coronal, sagittal reformats CT images acquired with automatic exposure control for dose reduction DLP: 605 mGy-cm Findings: Sulci, ventricles: Unremarkable. No intracerebral hemorrhage. No evidence acute territorial infarct. Mild basal ganglia calcification. No mass effect, midline shift. Bony calvarium intact. Visualized paranasal sinuses: Clear. Mastoid air cells: Clear. IMPRESSION: 1. No acute intracranial findings. Reviewed, dictated and finalized at location R. LE APPLICATION DEVELOPER
--- NOTE | 2025-09-07 23:26 | ED_ITS ---
HPI - Seizure General Chief Complaint: Seizure Stated Complaint: seizure Time Seen by Provider: 09/07/25 23:09 Source: patient and family Mode of arrival: ambulatory Limitations: no limitations History of Present Illness HPI Narrative: Patient is a 25-year-old female with a new onset seizure disorder from last visit having another seizure this morning. Patient initially came a few weeks ago and was found to have a seizure and did a workup on her and transferred to higher level medical care for Neurology. Patient chose to leave AMA prior to transfer. Further, she started to have a new 2nd seizure prior to arrival this time unwitnessed. She does not get soiled from stool or urine on either occasion. She did not bite her tongue on either occasion. She does get unconscious during the event and can not remember much around the event. This 2nd attack happened during her sleep. MD complaint: seizure Onset (ago): week(s) Description of Episode: loss of consciousness, tonic-clonic movement and post- event confusion Duration of episode: 30 -: second(s) Witnessed: No Trauma: No Seizure History: Yes Place: home Possible Precipitating Event: head injury Associated symptoms: malaise Treatments prior to arrival: none Are you currently using a commercial lending vice president's license ([employer]) as part of your employment, either self-employed or otherwise?: No Related Data Allergies Allergy/AdvReac Type Severity Reaction Status Date / Time No Known Allergies Allergy Verified 09/08/25 02:05 Review of Systems 2 Review of Systems: All systems reviewed & are unremarkable except as noted in HPI and below Constitutional: Constitutional: Reports no additional constitutional complaints Eyes: Eyes: Reports no additional eye complaints ENT: Reports system reviewed and no additional complaints, except as documented Cardiovascular: Cardiovascular: Reports no additional cardiovascular complaints Respiratory: Respiratory: Reports no additional respiratory complaints Gastrointestinal: Gastrointestinal: Reports no additional gastrointestinal complaints Genitourinary: Genitourinary: Reports no additional female genitourinary complaints Musculoskeletal: Musculoskeletal: Reports no additional musculoskeletal complaints Integumentary/Breasts: Skin/Breast: Reports system reviewed and no additional complaints, except as docu Neurologic: Reports system reviewed and no additional complaints, except as documented Psychiatric: Psychiatric: Reports no additional psychiatric complaints Endocrine: Endocrine: Reports no additional endocrine complaints Hematologic/Lymphatic: Hematologic/Lymphatic: Reports no additional hematologic/lymphatic complaints Allergic/Immunologic: Allergic/Immunologic: Reports no additional allergic/immunologic complaints PMFSH Past Medical History Medical History Incomplete miscarriage Nicotine dependence Asthma exacerbation Surgical History Surgical History History of dilation and curettage 04/2021 History of tonsillectomy Family History Family History Other Family history non-contributory Social History Social History Years smoked: 5 Smoking status: Current every day smoker Tobacco type: cigarettes Alcohol intake: former Substance use: former Substance use type: marijuana and unknown Other substance usage details: off several weeks. Highly motivated, wants to be with her kids. Gender identity (if verbalized by the patient): Female Exam 2 Const: General: healthy appearing Nutritional Appearance: well nourished Orientation/consciousness: patient oriented x3 Limitations: no limitations HENMT: Head: normal to inspection Ears: external ears normal F mj/Nose/Sinus: Normal external nose present Eyes: Conjunctivae: conjunctivae normal Pupils: Equal, round and reactive pupils present EOM: EOMs intact bilaterally Neck: Neck: normal visual inspection, no lymphadenopathy and no meningeal signs Chest: Chest palpation & inspection: normal inspection of the chest, normal inspection of the chest and no tenderness Resp: Effort & Inspection: normal respiratory effort, retractions and tachypneic Auscultation: clear to auscultation bilaterally, crackles, no rales and no rhonchi Cardio: Rate: regular rate Rhythm: regular rhythm and regular rhythm H eart sounds: no murmurs GI: Inspection: non-distended GI Palp: Yes Soft to palpation and No Tenderness to palpation present (GI) Auscultation: normal bowel sounds : General: Yes bladder normal to palpation Back/Spine/Pelvis: Back: no CVA tenderness Skin: General skin exam: normal color Rashes: no rashes Wounds: no wounds Neuro: General: patient oriented x3, moves all extremities, no meningeal signs, no focal motor deficits and CN's II-XI intact bilaterally Cranial nerves: Yes Nystagmus not present Speech: normal speech Gait exam (Neuro): Normal gait present Other: Fast exam negative, NIH score 0, GCS is 15 Extrem: General: normal to inspection, no clubbing, cyanosis or edema and no pedal edema Psych: Appearance: grossly normal Mental Status: mental status grossly normal Affect: normal affect Course Vital Signs Vital signs: Vital Signs Oxygen Delivery Room Air 09/07/25 22:56 Temperature 36.3 C L 09/07/25 22:59 Pulse Rate 88 09/08/25 03:24 Respiratory Rate 15 09/08/25 03:16 Blood Pressure 116/71 09/08/25 03:15 Pulse Oximetry 99 09/08/25 03:16 Oxygen Delivery Room Air 09/07/25 22:59 [facility] Narrative Medical decision making narrative: Patient is a 25-year-old female with now 2 occasions of seizure activity with the 2nd 1 happening prior to arrival this is it. We will do cardio neuro workup at this time. Plans to transfer the patient back to [facility] for neurology consultation and evaluation. We will give her Keppra IV. Differential Diagnosis Differential Diagnosis: Seizure disorder, pseudoseizures Lab Data [facility] Lab Attestation statement: I personally reviewed the patient's lab results. 09/08/25 00:40 09/08/25 00:40 Labs: Lab Results 09/08/25 09/08/25 Range/Units 00:40 03:26 WBC 9.0 (4.8-10.8) K/mm3 RBC 4.21 (4.20-5.40) M/mm3 Hgb 12.9 (12.0-15.0) g/dL Hct 39.3 (35.0-49.0) % MCV 93.3 (78.0-102.0) fL MCH 30.6 (27.0-31.0) pg MCHC 32.8 (32-36) g/dL RDW 13.0 (11.6-14.4) % Plt Count 345 (150-420) K/mm3 MPV 9.9 (9.2-11.8) fl Immature Gran % (Auto) 0.2 H (0.0-0.0) % Neut % (Auto) 60.1 (50.0-70.0) % Lymph % (Auto) 31.9 (18.0-42.0) % [place] % (Auto) 6.2 (2.0-11.0) % Eos % (Auto) 0.9 L (1.0-6.0) % Baso % (Auto) 0.7 (0.0-1.0) % Lymph # (Auto) 2.87 (1.10-4.50) K/mm3 [place] # (Auto) 0.56 (0.10-0.90) K/mm3 Eos # (Auto) 0.08 (0.02-0.50) K/mm3 Baso # (Auto) 0.06 (0.00-0.10) K/mm3 Abs Immat Gran (auto) 0.02 H (0.00-0.00) K/mm3 Absolute Neuts (auto) 5.42 (1.70-7.20) K/mm3 Absolute Nucleated RBC 0.00 (0.00-0.00) K/mm3 Nucleated RBC % 0.0 (0-0.0) % Sodium 141 (137-145) mmol/L Potassium 3.9 (3.4-5.0) mmol/L Chloride 105 (98-107) mmol/L Carbon Dioxide 26 (22-30) mmol/L Anion Gap 10 (4-12) mmol/L BUN 14 (7-17) mg/dL Creatinine 0.68 L (0.7-1.0) mg/dL Estim Creat Clear Calc 102 ml/min Estimated GFR > 60 (59 - ) Glucose 94 (65-110) mg/dL Calculated Osmolality 292 (285-295) mOsm/kg Lactic Acid 0.8 (0.7-2.0) mmol/L Calcium 9.6 (8.4-10.2) mg/dL Total Bilirubin 0.6 (0.2-1.3) mg/dL AST 34 (14-36) U/L ALT 41 H (6-35) U/L Alkaline Phosphatase 75 (38-126) U/L Total Creatine Kinase 135 (30-135) U/L Troponin I < 0.012 (0.000-0.034) ng/mL Total Protein 8.0 (6.3-8.2) g/dL Albumin 5.0 (3.5-5.1) g/dL Urine Color Yellow (Yellow) Urine Appearance Sl cloudy A (Clear) Urine pH 6.0 (5.0-8.0) Ur Specific [place] >= 1.030 H (1.010-1.020) Urine Protein 1+ H (Negative) Urine Glucose (UA) Negative (Negative) Urine Ketones 1+ H (Negative) Ur Blood (Man) Negative (Negative) Urine Nitrate Negative (Negative) Urine Bilirubin 1+ H (Negative) Urine Urobilinogen 1.0 (0.2-1.0) mg/dL Leukocyte Esterase Rfl Negative (Negative) LARA/UL Ur Squamous Epith Cells Many H (Few) /hpf Amorphous Sediment Heavy H (None) Urine Test Negative Imaging Data Attestation: I personally reviewed and interpreted this imaging study as follows: Radiologist's impression: CT scan of the head is negative for acute process Chest x-rays negative for acute process pending final reading ECG Data EKG #1: Attestation: I personally reviewed and interpreted this ECG as follows: ECG completion date: 09/08/25 ECG completion time: 05:19 normal rate, sinus rhythm (With sinus arrhythmia), no ectopy, normal QRS, normal QT, NL axis and no acute changes Discharge Plan Discharge Clinical Impression: Seizure-like activity, New onset seizure Patient Disposition: Acute Care Hospital Condition: Stable Patient Language: Romanian Follow-up/Referrals: Robert Muller MD [Primary Care Provider, Internal Medicine] Time of Disposition: 05:22
[2025-09-08] VITALS (78 sets, daily range): BP systolic 96–123; BP diastolic 47–80; PULSE 64–96; RESP 11–20; TEMP 36.4; O2SAT 90–100
--- NOTE | 2025-09-08 00:07 | ECG_ITS ---
Test Date: 2025-09-08 00:14:37 Measurements Intervals [place] Rate: 82 P: 58 [place]: 154 QRS: 77 QRSD: 88 T: 65 QT: 370 QTc: 434 Interpretive Statements SINUS RHYTHM WITH SINUS ARRHYTHMIA BASELINE ARTIFACT- I, II, III, AVR, AVL, AVF, V1 NORMAL ECG Compared to ECG 09/03/2025 02:23:23 HEART RATE HAS INCREASED Electronically Signed On 09-08-2025 08:41:18 [employer] by Dimitrios Hassan D.O.
--- NOTE | 2025-09-08 00:16 | PC.NURSE ---
pt aware urine specimen is needed but is unable to urinate at this time
[2025-09-08 00:45] LABS: Hematocrit 39.3 % (35.0-49.0); Hemoglobin 12.9 g/dL (12.0-15.0); Immature Granulocyte Percent A 0.2 % (0.0-0.0); Lymphocytes Absolute Auto 2.87 K/mm3 (1.10-4.50); Mean Corpuscular HGB Conc 32.8 g/dL (32-36); Mean Corpuscular Hemoglobin 30.6 pg (27.0-31.0); Mean Corpuscular Volume 93.3 fL (78.0-102.0); Nucleated Red Blood Cells Absolute Auto 0.00 K/mm3 (0.00-0.00); Nucleated Red Blood Cells Perc 0.0 % (0-0.0); Platelet Count Result 345 K/mm3 (150-420); Red Blood Count 4.21 M/mm3 (4.20-5.40); White Blood Count 9.0 K/mm3 (4.8-10.8)
[2025-09-08 00:53] LABS: Alanine Aminotransferase 41 U/L (6-35); Albumin Level 5.0 g/dL (3.5-5.1); Alkaline Phosphatase 75 U/L (38-126); Anion Gap 10 mmol/L (4-12); Aspartate Amino Transferase 34 U/L (14-36); Bilirubin,Total 0.6 mg/dL (0.2-1.3); Blood Urea Nitrogen 14 mg/dL (7-17); Calcium 9.6 mg/dL (8.4-10.2); Carbon Dioxide 26 mmol/L (22-30); Chloride 105 mmol/L (98-107); Creatine Kinase 135 U/L (30-135); Estimated CRCL calculation 102 ml/min; Estimated Glomerular Filt Rate > 60; Glucose 94 mg/dL (65-110); Osmolality Calculated 292 mOsm/kg (285-295); Potassium 3.9 mmol/L (3.4-5.0); Sodium 141 mmol/L (137-145); Total Protein 8.0 g/dL (6.3-8.2)
[2025-09-08] MEDS: levETIRAcetam 500MG/NACL 100ML 500 MG/100 ML BAG 400 MG (01:00)
[2025-09-08] MEDS: levETIRAcetam 1000MG/NACL100ML 1,000 MG/100 ML BAG 400 MG (01:01)
[2025-09-08] MEDS: SODIUM CHLORIDE 0.9% IV 1,000 ML 999 ML IV CONT (01:03)
[2025-09-08 01:13] LABS: Troponin I < 0.012 ng/mL (0.000-0.034)
[2025-09-08 03:45] LABS: Add Urine Microscopic? YES; Glucose Urine UA Negative (Negative); Leukocyte Esterase Ur Negative LEU/UL (Negative); Nitrate Urine Negative (Negative); Specific Grav Ur >= 1.030 (1.010-1.020)
[2025-09-08 03:51] LABS: Appearance Urine Sl Cloudy (Clear)
[2025-09-08 03:53] LABS: Pregnancy On Board Control Positive
[2025-09-08 06:41] LABS: Cannabinoid Screen Urine Positive (Negative)
== END 2025-09-08 08:57 | disposition short-term general hospital (02) ==
PROVIDERS: Emergency Provider Emergency Medicine; PCP Family Medicine
DX: R56.9 Unspecified convulsions (principal); F15.90 Other stimulant use, unspecified, uncomplicated; F17.210 Nicotine dependence, cigarettes, uncomplicated
CPT/HCPCS: 36415; 70450; 71045; 80053; 80307; 81001; 81025; 82550; 83605; 84484; 85025; 93005; 96361; 96374; 99285; J1953; J7030